=== PATIENT | male | born 1975 | race Caucasian/White ===

== ENCOUNTER 2019-02-24 07:48 | Emergency (ER) | payer OTHER ==
[~2019-02-24] VITALS: Ht 177.8 cm; Wt 97.9 kg
[2019-02-24] MEDS ORDERED: b/p med (07:55)
[2019-02-24] MEDS ORDERED: cholesterol med (07:55)
[2019-02-24] MEDS ORDERED: [UNRECOGNIZED DRUG - REMARK] (08:03)
--- NOTE | 2019-02-24 08:46 | REP ---
Right thumb four views : There is no fracture or dislocation. Mineralization and joint spaces are normal. There are no calcifications or foreign bodies. Impression: Negative right thumb . Electronically Signed by Mane Rosales MD 02/24/2019 08:37 A
[2019-02-24] MEDS ORDERED: ACETAMINOPHEN 325 MG TAB PO ONE (09:00)
[2019-02-24] MEDS ORDERED: ADACEL/BOOSTRIX VACCINE (DIPHTH/PERTUSS/ACELL/TETANUS)0.5ML SYR (90715) IM ONE (09:00)
[2019-02-24] MEDS ORDERED: LIDOCAINE 1% MDV 20ML VIAL SC ONE (09:00)
[2019-02-24] MEDS ORDERED: DERMABOND TOPICAL SKIN ADHESIVE TOP ONE (09:00)
[2019-02-24 09:55] VITALS: BP 115/73
== END 2019-02-24 09:54 | disposition home or self-care (01) ==
LOC: M ED 07:48
DX: S61.011A Laceration without foreign body of right thumb without damage to nail, initial encounter (principal); W22.8XXA Striking against or struck by other objects, initial encounter; Y92.59 Other trade areas as the place of occurrence of the external cause; Y93.89 Activity, other specified; F17.210 Nicotine dependence, cigarettes, uncomplicated

== ENCOUNTER 2019-03-23 16:16 | Emergency (ER) | payer OTHER ==
[~2019-03-23] VITALS: Ht 175.3 cm; Wt 100.2 kg
[~2019-03-23 16:16] MED LIST: [UNRECOGNIZED DRUG - REMARK]; b/p med; cholesterol med
[2019-03-23 16:17] VITALS: BP 129/87
[2019-03-23] MEDS ORDERED: IBUP-1022 PO (17:44)
--- NOTE | 2019-03-23 19:56 | REP ---
Right foot series: Four views. History: Pain. Findings: Four views right foot demonstrate that the patient is status post prior bunionectomy. There are two metallic pins in the proximal first metatarsal. There is mild Achilles calcaneal spurring. There are two accessory ossicles adjacent to the medial malleolus. No fracture or other acute bony abnormality is seen. Impression: Status post bunion repair first metatarsal. Accessory ossicles at the medial malleolus. Tiny heel spur. No acute bony abnormality. Electronically Signed by Pola Mcmillan MD 03/23/2019 07:47 P
== END 2019-03-23 18:07 | disposition home or self-care (01) ==
LOC: M ED 16:16
DX: S96.911A Strain of unspecified muscle and tendon at ankle and foot level, right foot, initial encounter (principal); X50.0XXA Overexertion from strenuous movement or load, initial encounter; Y92.9 Unspecified place or not applicable; G47.30 Sleep apnea, unspecified; I10 Essential (primary) hypertension; E78.00 Pure hypercholesterolemia, unspecified; F17.200 Nicotine dependence, unspecified, uncomplicated; Z79.899 Other long term (current) drug therapy; M77.31 Calcaneal spur, right foot

== ENCOUNTER 2019-10-13 09:16 | Emergency (ER) | payer OTHER ==
[~2019-10-13] VITALS: Ht 177.8 cm; Wt 104.2 kg
[~2019-10-13 09:16] MED LIST changes: +IBUP-1022 PO
[2019-10-13] MEDS ORDERED: ACETAMINOPHEN 500 MG TAB PO ONE (10:00)
[2019-10-13] MEDS ORDERED: KETOROLAC 60 MG/2 ML VIAL IM ONE (10:00)
[2019-10-13] MEDS ORDERED: ROBA750T4 PO (10:38)
[2019-10-13] MEDS ORDERED: LIDO1PAD TOP (10:38)
[2019-10-13 10:47] VITALS: BP 132/82
--- NOTE | 2019-10-13 11:25 | REP ---
LUMBOSACRAL SPINE, FIVE VIEWS: Five views of the lumbosacral spine performed. No compression fracture or malalignment is seen. There is normal lumbar lordosis. There is mild spurring at L3 and L4. There is mild disc space narrowing and subchondral sclerosis at L5-S1 with sclerosis and spurring at the posterior facet joints at that level as well. The posterior elements are intact. There is mild sclerosis at the sacroiliac joints. IMPRESSION: Mild degenerative changes. No fracture or dislocation. Electronically Signed by Mane Terrazas MD 10/13/2019 12:18 P
== END 2019-10-13 10:48 | disposition home or self-care (01) ==
LOC: M ED 09:16
DX: M54.5 Low back pain (principal); M50.30 Other cervical disc degeneration, unspecified cervical region; F17.218 Nicotine dependence, cigarettes, with other nicotine-induced disorders
CPT/HCPCS: 72110; 81001; 96372; 99283; J1885

== ENCOUNTER → 2020-02-10 | Outpatient (CLI) | payer OTHER ==
[~2020-02-10] MED LIST changes: +ATOR1TAB21 PO; +HYDR12.55 PO; +LIDO1PAD TOP; +LISI-538 PO; +ROBA750T4 PO
[2020-02-10 15:01] LABS: COLLAGEN EPINEPHRINE 210 SECONDS (74-162)
[2020-02-10 15:24] LABS: COLLAGEN ADP 100 SECONDS (56-103)
== END ==
LOC: M LAB 14:11
PROVIDERS: ATTEND Physical Medicine & Rehabilitation
DX: M50.320 Other cervical disc degeneration, mid-cervical region, unspecified level (principal)

== ENCOUNTER 2020-02-16 12:13 | Emergency (ER) | payer OTHER ==
[~2020-02-16] VITALS: Ht 175.3 cm; Wt 107.2 kg
[~2020-02-16 12:13] MED LIST changes: -ATOR1TAB21 PO; -HYDR12.55 PO; -LISI-538 PO
[2020-02-16] MEDS ORDERED: HYDR12.55 PO (12:31)
[2020-02-16] MEDS ORDERED: LISI-538 PO (12:31)
[2020-02-16] MEDS ORDERED: ATOR1TAB21 PO (12:31)
[2020-02-16] MEDS ORDERED: NS 1,000 ML IV SCH (12:41)
[2020-02-16] MEDS ORDERED: METOCLOPRAMIDE INJ 10MG/2ML VIAL (J2765 PER 1) IV ONE (12:45)
--- NOTE | 2020-02-16 12:59 | REPVR ---
PROCEDURE INFORMATION: Exam: CT Head Without Contrast Exam date and time: 02/16/2020 12:46 PM Age: 44 years old Clinical indication: Visual disturbance; Additional info: Gait unsteady, blurred vision, trouble concentrating TECHNIQUE: Imaging protocol: Computed tomography of the head without contrast. Radiation optimization: All CT scans at this facility use at least one of these dose optimization techniques: automated exposure control; mA and/or kV adjustment per patient size (includes targeted exams where dose is matched to clinical indication); or iterative reconstruction. COMPARISON: No relevant prior studies available. FINDINGS: Brain: Normal. No hemorrhage. Unremarkable white matter. No mass effect. Ventricles: No ventriculomegaly. Bones/joints: Unremarkable. No acute fracture. Paranasal sinuses: Visualized sinuses are unremarkable. No fluid levels. Mastoid air cells: Visualized mastoid air cells are well aerated. Soft tissues: Unremarkable. IMPRESSION: No acute intracranial abnormality. Electronically signed by: Christen Bermeo On 02/16/2020 12:58:48 PM
[2020-02-16 13:33] LABS: BASO # 0.1 10^3/uL (0.0-0.2); BASO % 0.9 % (0.0-1.0); EOS # 0.2 10^3/uL (0.0-0.5); EOS % 1.8 % (0.0-3.0); HEMATOCRIT 44.4 % (42.0-52.0); HEMOGLOBIN 15.9 g/dl (13.5-17.5); LYMPH # 2.5 10^3/uL (1.5-5.0); LYMPH % 24.9 % (24.0-44.0); MEAN CORPUSCULAR HEMOGLOBIN 32.6 pg (27.0-33.0); MEAN CORPUSCULAR HGB CONC 35.8 g/dl (32.0-36.5); MONO # 0.6 10^3/uL (0.0-0.8); MONO % 6.4 % (0.0-5.0); NEUTROPHILS # 6.6 10^3/uL (1.5-8.5); PLATELET COUNT, AUTOMATED 283 10^3/uL (150-450); RED BLOOD COUNT 4.88 10^6/uL (4.30-6.10); WHITE BLOOD COUNT 10.1 10^3/uL (4.0-10.0)
[2020-02-16 14:09] LABS: ACETAMINOPHEN LEVEL < 2.0 UG/ML (10.0-30.0); ALBUMIN 3.9 GM/DL (3.2-5.2); ALT/SGPT 87 U/L (12-78); BILIRUBIN,DIRECT 0.2 MG/DL (0.0-0.2); BILIRUBIN,TOTAL 0.7 MG/DL (0.2-1.0); BLOOD UREA NITROGEN 14 MG/DL (7-18); CALCIUM LEVEL 9.1 MG/DL (8.5-10.1); CARBON DIOXIDE LEVEL 30 MEQ/L (21-32); CHLORIDE LEVEL 103 MEQ/L (98-107); CK-MB VALUE MASS 1.1 NG/ML (<3.6); CPK CREATINE PHOSPHOKINASE 78 U/L (39-308); CREATININE FOR GFR 1.01 MG/DL (0.70-1.30); ETHYL ALCOHOL (ETHANOL) < 0.003 % (0.000-0.010); GLOMERULAR FILTRATION RATE > 60.0 (>60); GLUCOSE, FASTING 78 MG/DL (70-100); MB/CK RELATIVE INDEX 1.41 (< OR =4); SODIUM LEVEL 139 MEQ/L (136-145); THYROID STIMULATING HORMONE 0.257 uIU/ML (0.358-3.740); TOTAL PROTEIN 6.9 GM/DL (6.4-8.2); TROPONIN I < 0.02 NG/ML (< 0.10)
[2020-02-16 14:37] VITALS: BP 119/60
[2020-02-16 16:05] LABS: AMPHETAMINES LEVEL URINE NEGATIVE (NEGATIVE); BARBITURATES URINE NEGATIVE (NEGATIVE); BENZODIAZEPINES URINE NEGATIVE (NEGATIVE); CANNABINOIDS URINE NEGATIVE (NEGATIVE); COCAINE METABOLITE URINE NEGATIVE (NEGATIVE); METHADONE URINE NEGATIVE (NEGATIVE); OPIATES URINE NEGATIVE (NEGATIVE); PHENCYCLIDINE URINE NEGATIVE (NEGATIVE)
--- NOTE | 2020-02-20 09:49 | ECGEPIP ---
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
== END 2020-02-16 15:23 | disposition home or self-care (01) ==
LOC: M ED 12:13
DX: H53.9 Unspecified visual disturbance (principal); R47.9 Unspecified speech disturbances; I10 Essential (primary) hypertension; F17.200 Nicotine dependence, unspecified, uncomplicated; Z79.899 Other long term (current) drug therapy
CPT/HCPCS: 70450; 80048; 80076; 80307; 82550; 82553; 83605; 84443; 84484; 85025; 93005; 93041; 94760; 96361; 96374; 99284; G0480; J2765

== ENCOUNTER → 2020-03-12 | Outpatient (CLI) | payer OTHER ==
[~2020-03-12] MED LIST changes: +ATOR1TAB21 PO; +HYDR12.55 PO; +LISI-538 PO
[2020-03-12 11:46] LABS: PLATELET COUNT, AUTOMATED 338 10^3/uL (150-450)
[2020-03-12 11:57] LABS: INR 0.93; PROTHROMBIN TIME 12.6 SECONDS (12.5-14.3)
[2020-03-12 11:58] LABS: PARTIAL THROMBOPLASTIN TIME 27.4 SECONDS (24.2-38.5)
[2020-03-12 12:33] LABS: COLLAGEN EPINEPHRINE 124 SECONDS (74-162)
== END ==
LOC: M LAB 11:15
PROVIDERS: ATTEND Physical Medicine & Rehabilitation
DX: Z01.812 Encounter for preprocedural laboratory examination (principal)

== ENCOUNTER → 2020-04-20 | Outpatient (CLI) | payer OTHER ==
[~2020-04-20] MED LIST changes: +ISOVUE-370 76% 100ML VIAL As Ordered ONE
--- NOTE | 2020-04-20 09:32 | REPVR ---
PROCEDURE INFORMATION: Exam: CT Angiography Head With Contrast Exam date and time: 04/20/2020 8:37 AM Age: 44 years old Clinical indication: Pain; Headache; Additional info: Dizziness, visual changes, lightheadness, diff w/ gait TECHNIQUE: Imaging protocol: Computed tomography angiography of the head with intravenous contrast. 3D rendering (Not supervised by radiologist): MIP and/or 3D reconstructed images were created and reviewed. COMPARISON: No relevant prior studies available. FINDINGS: ANTERIOR CIRCULATION: Right internal carotid artery: Unremarkable. Intracranial segment is patent with no significant stenosis. No aneurysm. Right middle cerebral artery: Unremarkable. No occlusion or significant stenosis. No aneurysm. Right anterior cerebral artery: Unremarkable. No occlusion or significant stenosis. No aneurysm. Left internal carotid artery: Unremarkable. Intracranial segment is patent with no significant stenosis. No aneurysm. Left middle cerebral artery: Unremarkable. No occlusion or significant stenosis. No aneurysm. Left anterior cerebral artery: Unremarkable. No occlusion or significant stenosis. No aneurysm. POSTERIOR CIRCULATION: Right vertebral artery: Unremarkable. No occlusion or significant stenosis. No aneurysm. Left vertebral artery: Unremarkable. No occlusion or significant stenosis. No aneurysm. Basilar artery: Small due to origins of both posterior cerebral arteries. Right posterior cerebral artery: There is a origin of the right posterior cerebral artery. Left posterior cerebral artery: There is a origin of the left posterior cerebral artery. Brain: No definite mass, mass effect, or midline shift. Cerebral ventricles: Normal. No ventriculomegaly. Bones/joints: Unremarkable. No acute fracture. Soft tissues: Unremarkable. IMPRESSION: No large vessel stenosis or occlusion. PROCEDURE INFORMATION: Exam: CT Angiography Neck With Contrast Exam date and time: 04/20/2020 8:37 AM Age: 44 years old Clinical indication: Pain; Headache; Additional info: Dizziness, visual changes, lightheadness, diff w/ gait TECHNIQUE: Imaging protocol: Computed tomography angiography of the neck with intravenous contrast. 3D rendering (Not supervised by radiologist): MIP and/or 3D reconstructed images were created by the technologist. Radiation optimization: All CT scans at this facility use at least one of these dose optimization techniques: automated exposure control; mA and/or kV adjustment per patient size (includes targeted exams where dose is matched to clinical indication); or iterative reconstruction. Contrast material: ISO 370; Contrast volume: 100 ml; Contrast route: INTRAVENOUS (IV); COMPARISON: No relevant prior studies available. FINDINGS: Right common carotid artery: No stenosis. No dissection or occlusion. Right internal carotid artery: No stenosis of the extracranial segment. No dissection or occlusion. Right external carotid artery: No occlusion or stenosis of the origin. Right vertebral artery: No stenosis. No dissection or occlusion. Left common carotid artery: No stenosis. No dissection or occlusion. Left internal carotid artery: No stenosis of the extracranial segment. No dissection or occlusion. Left external carotid artery: No occlusion or stenosis of the origin. Left vertebral artery: No stenosis. No dissection or occlusion. Bones/joints: No acute fracture. Soft tissues: Normal. No significant soft tissue swelling. There is a 1.1 cm spiculated nodule in the left lung apex. A malignancy cannot be excluded based on this exam. There are multiple enlarged mediastinal lymph nodes. IMPRESSION: No stenosis or occlusion. There is a 1.1 cm spiculated nodule in the left lung apex. A malignancy cannot be excluded based on this exam. Follow-up chest CT scan is recommended. There are multiple enlarged mediastinal lymph nodes. REFERENCES: NASCET CRITERIA. The degree of internal carotid artery stenosis is based on NASCET criteria. Normal is no stenosis. Mild is less than 50% stenosis. Moderate is 50-69% stenosis. Severe is 70% to 99% stenosis. Total occlusion is no detectable patent lumen. Electronically signed by: Xu Ortega On 04/20/2020 09:33:00 AM
--- NOTE | 2020-04-20 09:33 | REPVR ---
PROCEDURE INFORMATION: Exam: CT Angiography Head With Contrast Exam date and time: 04/20/2020 8:37 AM Age: 44 years old Clinical indication: Pain; Headache; Additional info: Dizziness, visual changes, lightheadness, diff w/ gait TECHNIQUE: Imaging protocol: Computed tomography angiography of the head with intravenous contrast. 3D rendering (Not supervised by radiologist): MIP and/or 3D reconstructed images were created by the technologist. Radiation optimization: All CT scans at this facility use at least one of these dose optimization techniques: automated exposure control; mA and/or kV adjustment per patient size (includes targeted exams where dose is matched to clinical indication); or iterative reconstruction. Contrast material: ISO 370; Contrast volume: 100 ml; Contrast route: INTRAVENOUS (IV); COMPARISON: CT Head without contrast 02/16/2020 12:41 PM FINDINGS: ANTERIOR CIRCULATION: Right internal carotid artery: Unremarkable. Intracranial segment is patent with no significant stenosis. No aneurysm. Right middle cerebral artery: Unremarkable. No occlusion or significant stenosis. No aneurysm. Right anterior cerebral artery: Unremarkable. No occlusion or significant stenosis. No aneurysm. Left internal carotid artery: Unremarkable. Intracranial segment is patent with no significant stenosis. No aneurysm. Left middle cerebral artery: Unremarkable. No occlusion or significant stenosis. No aneurysm. Left anterior cerebral artery: Unremarkable. No occlusion or significant stenosis. No aneurysm. POSTERIOR CIRCULATION: Right vertebral artery: Unremarkable. No occlusion or significant stenosis. No aneurysm. Left vertebral artery: Unremarkable. No occlusion or significant stenosis. No aneurysm. Basilar artery: Small due to origins of both posterior cerebral arteries. Right posterior cerebral artery: There is a origin of the right posterior cerebral artery. Left posterior cerebral artery: There is a origin of the left posterior cerebral artery. Brain: No definite mass, mass effect, or midline shift. Cerebral ventricles: Normal. No ventriculomegaly. Bones/joints: Unremarkable. No acute fracture. Soft tissues: Unremarkable. IMPRESSION: No large vessel stenosis or occlusion. Electronically signed by: Xu Ortega On 04/20/2020 09:33:25 AM
== END ==
LOC: M RAD 07:33
PROVIDERS: ATTEND Emergency Medicine
DX: H53.9 Unspecified visual disturbance (principal); R26.81 Unsteadiness on feet; R42 Dizziness and giddiness

== ENCOUNTER → 2020-06-22 | Outpatient (CLI) | payer OTHER ==
[~2020-06-22] MED LIST changes: -ISOVUE-370 76% 100ML VIAL As Ordered ONE; -LISI-538 PO; +LISI20TA33 PO
--- NOTE | 2020-06-22 18:59 | REP ---
INDICATION: DIAGNOSING SOLITARY PULMONARY NODULE. COMPARISON: Comparison CT study of the chest 08 June 2020.. TECHNIQUE: Fifty-five minutes following the intravenous injection of a 8.05 mCi dose of F-18 FDG, three-dimensional PET scintigraphy is acquired from the skull base to the proximal thighs. Triplanar noncontrast CT scanning is acquired through the same anatomic range for attenuation correction, and image registration with scan parameters optimized to minimize radiation exposure to the patient. PET scintigraphy and CT datasets were fused and displayed on a workstation with multiplanar and projection display capability. FINDINGS: Head and neck soft tissues are unremarkable. The somewhat spiculated 1 cm nodule seen in the left lung apex shows discernible FDG accumulation. Maximum standard uptake value is 2.51. This is considered minimally hypermetabolic. No other abnormal hypermetabolic uptake is seen within the lung parenchyma. However, there is hypermetabolic adenopathy in the mediastinum. A 1 cm lymph node in the right pretracheal region shows visible uptake, 2.28. The left AP window region lymph node seen on recent CT shows hypermetabolic uptake with maximum standard uptake value 8.98. There is subcarinal adenopathy with a tara focus here showing. Maximum standard uptake value 9.24. No other abnormal hypermetabolic tara uptake is seen. In the abdomen and pelvis, normal distribution of FDG is seen. No abnormal adrenal uptake is seen. No abnormal uptake is noted in the abdomen or pelvis. IMPRESSION: There is a small 1 cm spiculated nodule in the left lung apex which is marginally hypermetabolic. There is hypermetabolic mediastinal lymphadenopathy however. Bronchogenic malignancy with metastatic adenopathy must be suspected. Granulomatous disease may be a possibility as well. <Electronically signed by Sal Mcmillan > 06/22/20 [id number]
== END ==
LOC: M PLARAD 14:27
PROVIDERS: ATTEND Emergency Medicine
DX: R91.1 Solitary pulmonary nodule (principal)

== ENCOUNTER → 2020-07-15 | Outpatient (CLI) | payer OTHER ==
[2020-07-15 12:06] LABS: BASO # 0.1 10^3/uL (0.0-0.2); EOS # 0.2 10^3/uL (0.0-0.5); EOS % 2.3 % (0.0-3.0); HEMATOCRIT 49.8 % (42.0-52.0); LYMPH # 2.6 10^3/uL (1.5-5.0); LYMPH % 29.5 % (24.0-44.0); MEAN CORPUSCULAR HEMOGLOBIN 30.5 pg (27.0-33.0); MEAN CORPUSCULAR HGB CONC 34.1 g/dl (32.0-36.5); MEAN CORPUSCULAR VOLUME 89.2 fl (80.0-96.0); MONO # 0.7 10^3/uL (0.0-0.8); MONO % 8.2 % (0.0-5.0); NEUTROPHILS % 58.4 % (36.0-66.0); PLATELET COUNT, AUTOMATED 350 10^3/uL (150-450); RED BLOOD COUNT 5.58 10^6/uL (4.30-6.10); WHITE BLOOD COUNT 8.6 10^3/uL (4.0-10.0)
[2020-07-15 12:16] LABS: INR 0.88; PROTHROMBIN TIME 12.1 SECONDS (12.5-14.3)
[2020-07-15 12:17] LABS: PARTIAL THROMBOPLASTIN TIME 29.3 SECONDS (24.2-38.5)
[2020-07-15 12:33] LABS: ALT/SGPT 57 U/L (12-78); BILIRUBIN,TOTAL 0.8 MG/DL (0.2-1.0); BLOOD UREA NITROGEN 15 MG/DL (7-18); CALCIUM LEVEL 9.4 MG/DL (8.5-10.1); CARBON DIOXIDE LEVEL 30 MEQ/L (21-32); CHLORIDE LEVEL 102 MEQ/L (98-107); CREATININE FOR GFR 0.99 MG/DL (0.70-1.30); GLOMERULAR FILTRATION RATE > 60.0 (>60); GLUCOSE, FASTING 78 MG/DL (70-100); POTASSIUM SERUM 4.8 MEQ/L (3.5-5.1); SODIUM LEVEL 138 MEQ/L (136-145); TOTAL PROTEIN 7.5 GM/DL (6.4-8.2)
== END ==
LOC: M LAB 11:14
PROVIDERS: ATTEND Internal Medicine Pulmonary Disease
DX: R91.8 Other nonspecific abnormal finding of lung field (principal)

== ENCOUNTER → 2020-07-16 | Outpatient (CLI) | payer OTHER ==
[~2020-07-16] MED LIST changes: +PROHANCE 279.3MG/ML 15ML VIAL As Ordered ONE; +PROHANCE 279.3MG/ML 5ML VIAL As Ordered ONE
--- NOTE | 2020-07-16 14:43 | REPVR ---
PROCEDURE INFORMATION: Exam: MR Head Without and With Contrast Exam date and time: 07/16/2020 2:11 PM Age: 44 years old Clinical indication: Altered mental status/memory loss; Confusion or disorientation; Additional info: Cognitive changes TECHNIQUE: Imaging protocol: MR of the head without and with intravenous contrast. Contrast material: PROHANCE; Contrast volume: 17 ml; Contrast route: INTRAVENOUS (IV); COMPARISON: CT Head without contrast 02/16/2020 12:41 PM FINDINGS: Brain: No acute infarct identified on the diffusion-weighted imaging. No evidence of brain parenchymal edema or intracranial mass effect. No significant white matter disease; essentially symmetric slight increased signal intensity in the occipital periventricular white matter of doubtful clinical relevance. No enhancing brain pathology. Cerebral ventricles: No ventriculomegaly. Bones/joints: Unremarkable. Paranasal sinuses: Normal as visualized. No acute sinusitis. Mastoid air cells: Normal as visualized. No mastoid effusion. Orbital cavity: Unremarkable. Soft tissues: Unremarkable. IMPRESSION: No acute intracranial abnormality. Electronically signed by: Alba Aguero On 07/16/2020 14:43:43 PM
== END ==
LOC: M RAD 12:55
PROVIDERS: ATTEND Emergency Medicine
DX: R91.8 Other nonspecific abnormal finding of lung field (principal); R41.89 Other symptoms and signs involving cognitive functions and awareness

== ENCOUNTER → 2020-07-22 | Outpatient (CLI) | payer OTHER ==
[~2020-07-22] MED LIST changes: +LIDO1PAD TD; +LOSA50TA88 PO; -PROHANCE 279.3MG/ML 15ML VIAL As Ordered ONE; -PROHANCE 279.3MG/ML 5ML VIAL As Ordered ONE; +PROZ20CA11 PO
--- NOTE | 2020-07-23 06:26 | REP ---
INDICATION: OTHER NONSPECIFIC ABNORMAL FINDING OF LUNG FIELD COMPARISON: 06/08/2020, 10/22/2018 TECHNIQUE: Axial noncontrast images from the thoracic inlet to the upper abdomen with coronal and sagittal reformations. This CT examination was performed using the following dose reduction techniques: Automated exposure control, adjustment of mA and/or kv according to the patient's size, and use of iterative reconstruction technique. FINDINGS: Part solid nodular density in the left apex, and basilar left upper lobe/lingula are unchanged compared to 06/08/2020 and relatively new as compared to 10/22/2018. No new nodules or mass lesions are appreciated. No consolidation, effusion, or pneumothorax. Tracheobronchial tree is patent. Few mildly prominent but stable lymph nodes are again identified in the prevascular space measuring approximately 11 mm in short axis diameter and 16 mm in the subcarinal space. Tracheobronchial tree is patent. Musculoskeletal structures are intact and without acute osseous abnormality. Limited upper abdomen demonstrates normal bilateral adrenal glands. IMPRESSION: Part solid nodular densities in the left apex and lingula/basilar left upper lobe stable compared to 06/08/2020. No new lesions are appreciated. <Electronically signed by Zuhair Delcid > 07/23/20 [id number]
== END ==
LOC: M RAD 17:19
PROVIDERS: ATTEND Internal Medicine Pulmonary Disease
DX: R91.8 Other nonspecific abnormal finding of lung field (principal)

== ENCOUNTER → 2020-07-23 | Outpatient (CLI) | payer OTHER | LOC: M LABSMTC 13:13 | PROVIDERS: ATTEND Anesthesiology | DX: Z01.812 Encounter for preprocedural laboratory examination (principal); Z20.822 Contact with and (suspected) exposure to COVID-19 ==

== ENCOUNTER 2020-07-28 06:10 | Day surgery (SDC) | payer OTHER ==
[~2020-07-28] VITALS: Ht 175.3 cm; Wt 107.0 kg
[~2020-07-28 06:10] MED LIST changes: +ALBUTEROL SULFATE 2.5 MG/0.5 ML INH NEB SOLN INH ONE; +LIDOCAINE 1% MDV 20ML VIAL SQ PRN; +LIDOCAINE 4% INJ 5ML AMP INH ONE; +LR 1,000 ML IV ONE
--- OUTSIDE RECORDS SUMMARY | 2020-07-28 06:14 | CCD | Continuity of Care Document ---
Author Author Des FRENCH M.D. Organization Unknown Address [address] [facility] [address] [place] [address] Phone [phone] Care Team Providers Care Clinical Research Tech Name Role Phone Shubham Parnell AUTM [phone] Marcial Grimaldo D.O. Unavailable Problems Description No Information Available Social History Type Date Description Comments Sex Unknown Tobacco Use Reviewed: 07/15/20 Patient is a current smoker, smokes every day 1 ppd Smoking Status Reviewed: 07/15/20 Patient is a current smoker, smokes every day 1 ppd Allergies, Adverse Reactions, Alerts Description No Known Drug Allergies Medications Active Medications SIG Qnty Indications Ordering Provide r Date Atorvastatin Calcium 40mg Tablets 1 tab by mouth every day Unknown Hydrochlorothiazide 12.5mg Capsule s 1 tab by mouth every day Unknown Losartan Potassium 50mg Tablets 1 tab by mouth every day Unknown CPAP Device 18cm Unknown Immunizations CPT Code Status Date Vaccine Lot # [id number] Given 07/01/2020 Afluria, Quadrivalent, 0.5ml , [facility]# 87272-840-54 Vital Signs Date Vital Result Comment 07/15/2020 9:15am BP Systolic 132 mmHg BP Diastolic 76 mmHg Heart Rate 95 /min O2 % BldC Oximetry 98 % Body Temperature 96.6 F Height 69 inches 5'9" Weight 230.00 lb BMI (Body Mass Index) 34.0 kg/m2 [place] Body Weight 160 lb Weight 104.328 kg BSA (Body Surface Area) 2.19 m2 Results Test Acquired Date Facility Test Result H/L Range Note FVL/[place] 07/15/2020 [facility] SEE IMAGE FVC-Pred 5.06 L FVC-Pre 4.77 L FVC-%Pred-Pre 94 L FVC-LLN 4.15 L Fev1-Pred 4.01 L Fev1-Pre 3.86 L Fev1-%Pred-Pre 96 L Fev1-LLN 3.24 L Fev6-Pred 4.92 L Fev6-Pre 4.77 L Fev6-%Pred-Pre 96 L Fev6-LLN 4.04 L Rzc5lte-Rwql 79 % Mfb8ude-Ivk 81 % Pds2cyc-%Pred-Pre 102 % Ayi9kvx-VFV 69 % Aqf2min-Ejnn 97 % Xfg3eun-Fzj 100 % Onr0ibr-%Pred-Pre 102 % FEFMax-Pred 9.87 L/E/sec FEFMax-Pre 9.13 L/E/sec FEFMax-%Pred-Pre 92 L/E/sec FEFMax-LLN 7.61 L/E/sec Bzd7510-Kinf 3.73 L/E/sec Cmx7681-Djg 3.82 L/E/sec Gzn5500-%Pred-Pre 102 L/E/sec Ihq1691-AOY 2.17 L/E/sec ExpTime-Pre 6.08 sec Edq4bwj2-Hsaq 81 % Xrd2pre6-Uhc 81 % Bvu3fsy4-%Pred-Pre 99 % Yml6dgn1-IRE 72 % Procedures Description No Information Available Medical Devices Description No Information Available Encounters Type Date Location Provider Dx Diagnosis Office Visit 07/15/2020 9:30a [facility] Mari iNcholas M.D. F17.218 Nicotine dependence, cigaret bernadine, w oth disorders R91.8 Other nonspecific abnormal f inding of lung field R59.0 Localized enlarged lymph nod es Assessments Date Code Description Provider 07/15/2020 F17.218 Nicotine dependence, cigarettes, with other nicotine-induced disorders Mari French M.D. 07/15/2020 R91.8 Other nonspecific abnormal findi ng of lung field Mari French M.D. 07/15/2020 R59.0 Localized enlarged lymph nodes Mari Nicholas M.D. Plan of Treatment 07/15/2020 - Mari French M.D.* F17.218 Nicotine dependence, cigarettes, with other nicotine-induced disorders * R91.8 Other nonspecific abnormal finding of lung field * R59.0 Localized enlarged lymph nodes * * Follow up:* Follow up in office after procedure. Functional Status Description No Information Available Mental Status Description No Information Available Referrals Refer to Reason for Referral Status Appt Date Brad Fernández M.D. [id number] CONSULT DX NODULE Created [facility] [address] [place] [id number] [phone] Brad Fernández M.D. [id number] F/U DX NODULE Created [facility] [address] [place], [place] [address] [phone]
--- OUTSIDE RECORDS SUMMARY | 2020-07-28 06:14 | CCD ---
Author Author [facility] Organization [facility] Address Unknown Phone Unavailable Care Team Providers Care Auditing Specialist Name Role Phone Mari Lincoln MD Unavailable Unavailable Mari Lincoln MD Unavailable Unavailable Mari Lincoln MD Unavailable Unavailable Mari Lincoln MD Unavailable Unavailable Mari Lincoln MD Unavailable Unavailable Mari Lincoln MD Unavailable Unavailable Mari Lincoln MD Unavailable Unavailable Mari Lincoln MD Unavailable Unavailable Mari Lincoln MD Unavailable Unavailable Mari Lincoln MD Unavailable Unavailable Mari Lincoln MD Unavailable Unavailable Mari Lincoln MD Unavailable Unavailable Mari Lincoln MD Unavailable Unavailable Mari Lincoln MD Unavailable Unavailable Mari Lincoln MD Unavailable Unavailable Mari Lincoln MD Unavailable Unavailable Mari Lincoln MD Unavailable Unavailable Mari Lincoln MD Unavailable Unavailable Mari Lincoln MD Unavailable Unavailable Mari Lincoln MD Unavailable Unavailable Mari Lincoln MD Unavailable Unavailable Mari Lincoln MD Unavailable Unavailable Mari Lincoln MD Unavailable Unavailable Mari Lincoln MD Unavailable Unavailable Mari Lincoln MD Unavailable Unavailable Mari Lincoln MD Unavailable Unavailable CamarilloUziel Unavailable Unavailable Camarillo, Uziel Unavailable Unavailable Camarillo, Uziel Unavailable Unavailable Camarillo, Uziel Unavailable Unavailable Camarillo, Uziel Unavailable Unavailable Camarillo, Uziel Unavailable Unavailable Camarillo, Uziel Unavailable Unavailable Camarillo, Uziel Unavailable Unavailable Camarillo, Uziel Unavailable Unavailable Camarillo, Uziel Unavailable Unavailable Camarillo, Uziel Unavailable Unavailable [place]arillo, Uziel Unavailable Unavailable [place]ar[place], Uziel Unavailable Unavailable [place]ar[place], Uziel Unavailable Unavailable [place]ar[place], Uziel Unavailable Unavailable [place], Uziel Unavailable Unavailable [place], Uziel Unavailable Unavailable [place]ar[place], Uziel Unavailable Unavailable [place], Uziel Unavailable Unavailable Camarillo, Uziel Unavailable Unavailable Camarillo, Uziel Unavailable Unavailable [place], Uziel Unavailable Unavailable [place], Uziel Unavailable Unavailable [place]arillo, Uziel Unavailable Unavailable Camarillo, Uziel Unavailable Unavailable [place]arillo, Uziel Unavailable Unavailable [place], Uziel Unavailable Unavailable [place], Uziel Unavailable Unavailable [place]ar[place], Uziel Unavailable Unavailable Camarillo, Uziel Unavailable Unavailable [place]ar[place], Uziel Unavailable Unavailable [place], Uziel Unavailable Unavailable [place]ar[place], Uziel Unavailable Unavailable [place], Uziel Unavailable Unavailable [place]arillo, Uziel Unavailable Unavailable [place]ar[place], Uziel Unavailable Unavailable [place], Uziel Unavailable Unavailable [place], Uziel Unavailable Unavailable [place], Uziel Unavailable Unavailable [place]ar[place], Uziel Unavailable Unavailable [place]ar[place], Uziel Unavailable Unavailable [place], Uziel Unavailable Unavailable [place]ar[place], Uziel Unavailable Unavailable [place]ar[place], Uziel Unavailable Unavailable Johnson, L Earle CROSS Unavailable Unavailable Johnson, Candelario Og MD Unavailable Unavailable Johnson, Candelario Og MD Unavailable Unavailable Johnson, Candelario Og MD Unavailable Unavailable Johnson, Candelario Og MD Unavailable Unavailable Johnson, Candelario Og MD Unavailable Unavailable Johnson, Candelario Og MD Unavailable Unavailable Johnson, Candelario Og MD Unavailable Unavailable Johnson, Candelario Og MD Unavailable Unavailable Johnson, Candelario Og MD Unavailable Unavailable Johnson, Candelario Og MD Unavailable Unavailable Johnson, Candelario Og MD Unavailable Unavailable Johnson, Candelario Og MD Unavailable Unavailable Johnson, Candelario Og MD Unavailable Unavailable Johnson, Candelario Og MD Unavailable Unavailable Johnson, Candelario Og MD Unavailable Unavailable Johnson, Candelario Og MD Unavailable Unavailable Johnson, Candelario Og MD Unavailable Unavailable Johnson, Candelario Og MD Unavailable Unavailable Johnson, Candelario Og MD Unavailable Unavailable Johnson, Candelario Og MD Unavailable Unavailable Johnson, Candelario Og MD Unavailable Unavailable Johnson, Candelario Og MD Unavailable Unavailable Johnson, Candelario Og MD Unavailable Unavailable Johnson, Candelario Og MD Unavailable Unavailable Johnson, Candelario Og MD Unavailable Unavailable Johnson, Candelario Og MD Unavailable Unavailable Johnson, Candelario Og MD Unavailable Unavailable Johnson, Candelario Og MD Unavailable Unavailable Johnson, Candelario Og MD Unavailable Unavailable Johnson, Candelario Og MD Unavailable Unavailable Johnson, Candelario Og MD Unavailable Unavailable Johnson, Candelario Og MD Unavailable Unavailable Johnson, Candelario Og MD Unavailable Unavailable Johnson, Candelario Og MD Unavailable Unavailable Johnson, Candelario Og MD Unavailable Unavailable Johnson, Candelario Og MD Unavailable Unavailable Johnson, Candelario Og MD Unavailable Unavailable Johnson, Canedlario Og MD Unavailable Unavailable Johnson, Candelario Og MD Unavailable Unavailable Johnson, Candelario Og MD Unavailable Unavailable Johnson, Candelario Og MD Unavailable Unavailable Johnson, Candelario Og MD Unavailable Unavailable Johnson, Candelario Og MD Unavailable Unavailable Jonhson, Candelario Og MD Unavailable Unavailable Johnson, Candelario Og MD Unavailable Unavailable Candelario Johnson MD Unavailable Unavailable Candelario Johnson MD Unavailable Unavailable SEE, M CHARAN PA Unavailable Unavailable SEE, M CHARAN PA Unavailable Unavailable SEE, M CHARAN PA Unavailable Unavailable SEE, M CHARAN PA Unavailable Unavailable SEE, M CHARAN PA Unavailable Unavailable SEE, M CHARAN PA Unavailable Unavailable SEE, M CHARAN PA Unavailable Unavailable SEE, M CHARAN PA Unavailable Unavailable SEE, M CHARAN PA Unavailable Unavailable SEE, M CHARAN PA Unavailable Unavailable SEE, M CHARAN PA Unavailable Unavailable SEE, M CHARAN PA Unavailable Unavailable SEE, M CHARAN PA Unavailable Unavailable SEE, M CHARAN PA Unavailable Unavailable SEE, M CHARAN PA Unavailable Unavailable SEE, M CHARAN PA Unavailable Unavailable SEE, M CHARAN PA Unavailable Unavailable SEE, M CHARAN PA Unavailable Unavailable SEE, M CHARAN PA Unavailable Unavailable SEE, M CHARAN PA Unavailable Unavailable SEE, M CHARAN PA Unavailable Unavailable SEE, M CHARAN PA Unavailable Unavailable SEE, M CHARAN PA Unavailable Unavailable SEE, M CHARAN PA Unavailable Unavailable Re-disclosure Warning The records that you are about to access may contain information from federally-assisted alcohol or drug abuse programs. If such information is present, then the following federally mandated warning applies: This information has been disclosed to you from records protected by federal confidentiality rules (42 CFR part 2). The federal rules prohibit you from making any further disclosure of this information unless further disclosure is expressly permitted by the written consent of the person to whom it pertains or as otherwise permitted by 42 CFR part 2. A general authorization for the release of medical or other information is NOT sufficient for this purpose. The Federal rules restrict any use of the information to criminally investigate or prosecute any alcohol or drug abuse patient.The records that you are about to access may contain highly sensitive health information, the redisclosure of which is protected by Article 27-F of the [place] State Public Health law. If you continue you may have access to information: Regarding HIV / AIDS; Provided by facilities licensed or operated by the [facility] Office of Mental Health; or Provided by the [facility] Office for People With Developmental Disabilities. If such information is present, then the following [facility] mandated warning applies: This information has been disclosed to you from confidential records which are protected by state law. State law prohibits you from making any further disclosure of this information without the specific written consent of the person to whom it pertains, or as otherwise permitted by law. Any unauthorized further disclosure in violation of state law may result in a fine or intermediate sentence or both. A general authorization for the release of medical or other information is NOT sufficient authorization for further disc losure. Encounters Encounter Providers Location Date Indications Data Source(s ) Office Visit Attender: Mari Casillas/Justice/Fernando/Domenic [email or web address] 07/15/2020 08:30:00 AM EST [facility] ([facility], ) Outpatient Attender: CHARAN CERVANTES Physical Therapy 03/05 09:15:00 AM EDT [facility] Outpatient Attender: CHARAN CERVANTES Physical Therapy 02/03 11:00:00 AM EDT [facility] Outpatient Attender: Uziel Camarillo Physical Therapy 01/22/2020 01:00:0 0 PM EDT [facility] ([facility] ) Outpatient Attender: Earle Johnson MD Physical Therapy 01/16/2020 0 9:00:00 AM EDT [facility] ([facility] ) Immunizations Vaccine Date Status Description Data Source(s) New in 2011. IIV4 07/01/2020 08:12:00 AM EST completed [facility] ([facility], ) Medications Medication Brand Name Start Date Product Form Dose Route Admi nistrative Instructions Pharmacy Instructions Status Indications Reaction Description Data Source(s) 8 HR Acetaminophen 650 MG Extended Release Oral Tablet [Tyle nol] Tylenol 8 Hour 10/21/2019 12:00:00 AM EDT active [facility] ([facility], ) Insurance Providers Payer name Policy type / Coverage type Policy ID Covered constitution party ID Covered constitution party's relationship to radford Policy Radford Plan Information [facility] ACTIVE DUTY [id number] SP [id number] [facility] [id number] SP [id number] ACTIVE DUTY [id number] MERGED WITH [facility] O [id number] S [id number] ACTIVE DUTY [id number] SP [id number] Problems, Conditions, and Diagnoses Code Display Name Description Problem Type Effective Dates Data Source(s) 50978282 Carpal tunnel syndrome Carpal tunnel syndrome Problem 10/21/2019 12:00:00 AM EDT [facility] ([facility], ) [id number] Cervical radiculopathy Cervical radiculopathy Problem 10/21/2019 12:00:00 AM EDT [facility] ([facility], ) [id number] Chronic neck pain Chronic neck pain Problem 10/02 12:00:00 AM EDT [facility] ([facility], ) Surgeries/Procedures Procedure Description Date Indications Data Source(s) Injec Anesthetic Agent/Steroid Trans Epidural Cerv/Thor Sing le 03/15/2020 12:00:00 AM EDT [facility] ([facility] ) Epidurography Radiological Supervision & Interpretation 03/15/2020 12:00:00 AM EDT [facility] ([facility] ) Moderate Sedation Services; Same Phys Intl 15 Mins; PT >= 5 Years 03/15/2020 12:00:00 AM EDT [facility] ([facility] ) MRI Upper Extremity Any Joint 02/17/2020 12:00:00 AM E DT [facility] ([facility] ) Needle electromyography, each extremity, with related paraspinal areas, when performed, done with nerve conduction, amplitude and latency/velocity study; complete, five or more muscles studied, innervated by three or more nerves or four or more spinal levels (list separately in addition to the code for primary procedure). 10/21/2019 12:00:00 AM EDT [facility] ([facility], ) Needle electromyography, each extremity, with related paraspinal areas, when performed, done with nerve conduction, amplitude and latency/velocity study; complete, five or more muscles studied, innervated by three or more nerves or four or more spinal levels (list separately in addition to the code for primary procedure). 10/21/2019 12:00:00 AM EDT [facility] ([facility], ) Needle Electromyography Non Extremity Done With Nerve Conduc tion 10/21/2019 12:00:00 AM EDT [facility] ([facility]) [address] Nerve conduction studies 13 or more studies NEW 201210/21/2019 12:00:00 AM EDT [facility]) Results ID Date Data Source [id number] 07/23/2020 01:25:00 PM EST [facility] Name Value Range Interpretation Code Description Data Ashanti rce(s) Supporting Document(s) SARS coronavirus 2 RNA Not Detected [facility] This lab was ordered by [facility] and reported by [facility]. ID Date Data Source [id number] 07/15/2020 09:14:00 AM EST [facility] ([facility], ) Name Value Range Interpretation Code Description Data Ashanti rce(s) Supporting Document(s) PDFReport Laboratory test result [facility] ([facility], ) FVC-%Pred-Pre 94 L [facility] ([facility]) FVC-Pred 5.06 L [facility] ([facility]) FVC-Pre 4.77 L [facility] ([facility]) Fev1-Pred 4.01 L [facility] ([facility]) Fev1-Pre 3.86 L [facility] ([facility]) FVC-LLN 4.15 L [facility] ([facility]) Fev1-LLN 3.24 L [facility] ([facility]) Fev1-%Pred-Pre 96 L [facility] ([facility]) Fev6-Pred 4.92 L [facility] ([facility]) Fev6-LLN 4.04 L [facility] ([facility]) Fev6-%Pred-Pre 96 L [facility] ([facility]) Fev6-Pre 4.77 L [facility] ([facility]) Xpk9udy-Dhvd 79 % [facility] ([facility]) Iof0yjf-Keo 81 % [facility] ([facility]) Krw4gqc-Fxig 97 % [facility] ([facility]) Vvu7jch-FIK 69 % [facility] ([facility]) Wgu1scq-%Pred-Pre 102 % [facility] ([facility]) Civ8lhl-Ivo 100 % [facility] ([facility]) Htf9anl-%Pred-Pre 102 % [facility] ([facility]) FEFMax-Pred 9.87 L/E/sec [facility] ([facility]) FEFMax-Pre 9.13 L/E/sec [facility] ([facility]) FEFMax-LLN 7.61 L/E/sec [facility] ([facility]) FEFMax-%Pred-Pre 92 L/E/sec [facility] ([facility]) Hil8251-Hhvm 3.73 L/E/sec [facility] ([facility]) Mvc1574-%Pred-Pre 102 L/E/sec [facility] ([facility]) Enz2633-Ppk 3.82 L/E/sec [facility] ([facility]) Utz7els8-Qwbd 81 % [facility] ([facility]) ExpTime-Pre 6.08 sec [facility] ([facility]) Hgq5989-PRK 2.17 L/E/sec [facility] ([facility]) Ere9aye9-Ani 81 % [facility] ([facility]) Jxd6daj6-VXX 72 % [facility] ([facility]) Bxh6cbu5-%Pred-Pre 99 % [facility] ([facility]) ID Date Data Source [id number] 06/08/2020 12:00:00 AM EST [facility] HELEN Hernandez Patient Name: BECKA [id number] Natasha Davis Date of : 1975Joes[birth year] [place] [address] Date of Exam: [facility]#: Fax: [phone] EXAM: CT THORAX WITH CONTRASTCLINICAL INFORMATION: Followup lung nodule which by history measured 4 mmin size.The prior examination is in [facility] and no prior images are availablefor comparison.Low dose [address] scanning of the chest was obtained using 3 mmincrements after the administration of intravenous contrast andreconstructed in both coronal and sagittal scan planes. 75 cc of [id number] was administered intravenously.There is a single enlarged mediastinal lymph node at the level of theaortic arch on the left and having a maximal short axis dimension of 1.1cm. Other much smaller lymph nodes are also seen in the mediastinum. Thereis no evidence of hilar adenopathy. There are no pleural or pericardialeffusions. The imaged upper abdomen is within normal limits. The imagedosseous structures are within normal limits.Evaluation of the lung mancera shows a 9 mm sized irregular left apicaldensity. In the superior lingula there is an 8 mm sized irregular nodule.In the inferior lingula there is a 5 mm sized nodule.IMPRESSION:1. There are three left lung nodules as described above. The mostconcerning are the apical asymmetric density which measures 9 mm and theirregular superior lingular nodule which measures 8 mm. Since I have nopriors for comparison, according to the revised Fleischner's SocietyCriteria, CT PET is recommended at this time. The larger of the two nodulesrepresent category 4B lesions possibly category 4X for the largest nodule.2. Mediastinal adenopathy as described above.Accredited by the [employer] in [place].JUANA Grimes/Salbador you for referring BECKA ADHIKARI to our office. Electronically Signed - INDER LANE DO 06/09/20 15:12 Name Value Range Interpretation Code Description Data Ashanti rce(s) Supporting Document(s) ID Date Data Source [id number] 03/12/2020 11:26:00 AM EDT [facility] ([facility] ) Name Value Range Interpretation Code Description Data Ashanti rce(s) Supporting Document(s) Prothrombin time (PT) 27.4 s 24.2-38.5 [facility] ([facility] ) ID Date Data Source [id number] 03/12/2020 11:26:00 AM EDT [facility] ([facility] ) Name Value Range Interpretation Code Description Data Ashanti rce(s) Supporting Document(s) Prothrombin Time 12.6 s 12.5-14.3 [facility] ([facility]) Inr 0.93 [facility] ([facility] ) THERAPUTIC HUMAN INR VALUES INDICATIONS NORMAL RANGES PROPHYLAXIS/TREATMENT OF: VENOUS THROMBOSIS 2.0-3.0 PULMONARY EMBOLISM 2.0-3.0 PREVENTION OF SYSTEMIC EMBOLISM FROM: TISSUE HEART VALVES 2.0-3.0 ACUTE MYOCARDIAL INFARCTION 2.0-3.0 VALVULAR HEART DISEASE 2.0-3.0 ATRIAL FIBRILLATION 2.0-3.0 MECHANICAL VALVES(HIGH RISK) 2.5-3.5 RECURRENT MYOCARDIAL INFARCTION 2.5-3.5 ID Date Data Source [id number] 03/12/2020 11:26:00 AM EDT [facility] ([facility] ) Name Value Range Interpretation Code Description Data Ashanti rce(s) Supporting Document(s) Platelets [#/volume] in Blood by Automated count 338 10 150-450 [facility] ([facility] ) ID Date Data Source [id number] 03/12/2020 11:26:00 AM EDT [facility] ([facility] ) Name Value Range Interpretation Code Description Data Ashanti rce(s) Supporting Document(s) Collagen Epinephrine 124 s 74-162 [facility] ([facility] ) Results may be affected by platelet coun ts less than 150,000/mL or hematocrits less than 35%. If COL/EPI is NORMAL, COL/ADP is not performed. Result Interpretation: COL/EPI COL/ADP NORMAL NORMAL NORMAL ASA ABNORMAL NORMAL vWD ABNORMAL NORMAL GLANZMANN'S ABNORMAL ABNORMAL THROMBASTHENIA POSSIBLE DRUG ABNORMAL ABNORMAL EFFECT ID Date Data Source [id number] 02/10/2020 02:15:00 PM EDT [facility] ([facility] ) Name Value Range Interpretation Code Description Data Ashanti rce(s) Supporting Document(s) Platelet aggregation collagen induced [Presence] in Platelet rich plasma 100 s 56-103 [facility] ([facility]) Results may be affected by platelet coun ts less than 150,000/mL or hematocrits less than 35%. ID Date Data Source [id number] 02/10/2020 02:15:00 PM EDT [facility] ([facility]) Name Value Range Interpretation Code Description Data Ashanti rce(s) Supporting Document(s) Collagen Epinephrine 210 s 74-162 [facility] Results may be affected by platelet coun ts less than 150,000/mL or hematocrits less than 35%. If COL/EPI is NORMAL, COL/ADP is not performed. Result Interpretation: COL/EPI COL/ADP NORMAL NORMAL NORMAL ASA ABNORMAL NORMAL vWD ABNORMAL NORMAL GLANZMANN'S ABNORMAL ABNORMAL THROMBASTHENIA POSSIBLE DRUG ABNORMAL ABNORMAL EFFECT ID Date Data Source [id number] 02/10/2020 02:15:00 PM EDT [facility] ([facility]) Name Value Range Interpretation Code Description Data Ashanti rce(s) Supporting Document(s) Prothrombin time (PT) Laboratory test result [facility] ([facility]) Platelets [#/volume] in Blood by Automated count Laboratory test resu lt [facility] ([facility]) Procedure Social History Code Duration Value Status Description Data Source(s ) 07/15/2020 12:00:00 AM EST Patient is a current smoker, smokes every day completed Patient is a current smoker, smokes every day [facility] ( [facility]) Vital Signs ID Date Data Source UNK Name Value Range Interpretation Code Description Data Source(s) Body surface area Derived from formula 2.19 m2 2.19 m2 [facility] ([facility]) Body weight 104.328 kg 104.328 kg [facility] ([facility]) Bronson body weight 160 [lb_av] 160 [lb_av] [facility] Body mass index (BMI) [Ratio] 34.0 kg/m2 34.0 k g/m2 [facility] ([facility]) Body weight 230.00 [lb_av] 230.00 [lb_av] [facility] Body height 69 [in_i] 69 [in_i] [facility] ([facility]) 5'9" Body temperature 96.6 [degF] 96.6 [degF] [facility] ([facility] ) Oxygen saturation in Arterial blood by Pulse oximetry 98 % 98 % [facility] ([facility], ) Heart rate 95 /min 95 /min [facility] ([facility], ) Diastolic blood pressure 76 mm[Hg] 76 mm[Hg] [facility] ([facility]) Systolic blood pressure 132 mm[Hg] 132 mm[Hg] [facility] Body mass index (BMI) [Ratio] 34.0 kg/m2 34.0 k g/m2 [facility] ([facility] ) Body weight 230.00 [lb_av] 230.00 [lb_av] [facility] ([facility] ) Body height 69 [in_i] 69 [in_i] [facility] ([facility] ) 5'9" Body temperature 97.7 [degF] 97.7 [degF] [facility] ([facility] ) Body mass index (BMI) [Ratio] 33.2 kg/m2 33.2 k g/m2 [facility] ([facility] ) Body weight 225.00 [lb_av] 225.00 [lb_av] [facility] ([facility] ) Body height 69 [in_i] 69 [in_i] [facility] ([facility] ) 5'9" Body temperature 97.6 [degF] 97.6 [degF] [facility] ([facility] ) Body mass index (BMI) [Ratio] 34.0 kg/m2 34.0 k g/m2 [facility] ([facility] ) Body weight 230.00 [lb_av] 230.00 [lb_av] [facility] ([facility], ) Body height 69 [in_i] 69 [in_i] [facility] ([facility], ) 5'9" Heart rate 72 /min 72 /min [facility] ([facility], ) Diastolic blood pressure 80 mm[Hg] 80 mm[Hg] [facility] ([facility] ) Systolic blood pressure 120 mm[Hg] 120 mm[Hg] [facility] ([facility])
[2020-07-28] MEDS ORDERED: THROMBIN SOLN 5,000 UNITS VIAL As Ordered ONE ×2 (07:14→07:20)
[2020-07-28] MEDS ORDERED: CETACAINE SPRAY 5GM As Ordered ONE (07:15)
[2020-07-28] MEDS ORDERED: LIDOCAINE 1% SDV 30ML VIAL As Ordered ONE ×2 (07:15→07:16)
[2020-07-28] MEDS ORDERED: EPINEPHrine 1MG/10ML SYRINGE 1.5IN As Ordered ONE (07:15)
[2020-07-28] MEDS ORDERED: THROMBIN SOLN 20,000 UNITS KIT As Ordered ONE (07:16)
[2020-07-28] MEDS ORDERED: propofoL 200 MG/20 ML VIAL As Ordered ONE ×2 (07:19→08:12)
[2020-07-28] MEDS ORDERED: ROCURONIUM BROMIDE 50 MG/5 ML VIAL As Ordered ONE (07:19)
[2020-07-28] MEDS ORDERED: LIDOCAINE 2% 100MG/5ML SDV (FOR ANES.) As Ordered ONE (07:19)
[2020-07-28] MEDS ORDERED: dexameTHASONE 4 MG/ML 1ML VIAL (J1100 PER 1MG) As Ordered ONE (07:19)
[2020-07-28] MEDS ORDERED: fentaNYL 100 MCG/2 ML INJECTION (J3010) As Ordered ONE (07:20)
[2020-07-28] MEDS ORDERED: MIDAZOLAM INJ 2MG/2ML VIAL (J2250 PER 1MG) As Ordered ONE (07:20)
[2020-07-28] MEDS ORDERED: LABETALOL 100MG/20ML VIAL As Ordered ONE (08:05)
[2020-07-28] MEDS ORDERED: ePHEDrine SULFATE 25 MG/5 ML(5MG/ML) SYRINGE As Ordered ONE ×3 (08:12→10:16)
[2020-07-28] MEDS ORDERED: SUGAMMADEX SODIUM 500 MG/5 ML VIAL (BRIDION) As Ordered ONE (08:32)
[2020-07-28] MEDS ORDERED: LACRILUBE (AKWA TEARS) OPHTH OINT 3.5 GM As Ordered ONE (08:32)
[2020-07-28] MEDS ORDERED: oxyCODONE 5MG TAB As Ordered ONE (09:36)
--- NOTE | 2020-07-28 09:38 | REP ---
INDICATION: S/P EBUS. COMPARISON: Comparison chest CT study July 22 2020. TECHNIQUE: Portable chest x-ray: Two views, inspiration and expiration views.. FINDINGS: There is no evidence of pneumothorax or hydrothorax. Mild platelike atelectasis is seen in the left lung base. There is a nodular opacity visible in the left lung apex. Lung mancera are otherwise clear. Heart is not enlarged.. IMPRESSION: Left apical lung nodule. No evidence of pneumothorax.. <Electronically signed by Sal Mcmillan > 07/28/20 [id number]
[2020-07-28] MEDS: oxyCODONE 5MG TAB PO PRN ×2 (09:39→10:19)
[2020-07-28] MEDS: fentaNYL 100 MCG/2 ML INJECTION (J3010) IV PRN ×4 (09:43→10:00)
[2020-07-28] MEDS ORDERED: METOCLOPRAMIDE INJ 10MG/2ML VIAL (J2765 PER 1) IV PRN (09:45)
[2020-07-28] MEDS ORDERED: LR 1,000 ML IV SCH (09:45)
[2020-07-28] MEDS ORDERED: ONDANSETRON 4MG/2ML VIAL IV PRN (09:45)
[2020-07-28 12:02] VITALS: BP 138/71
--- NOTE | 2020-07-28 12:25 | REP ---
INDICATION: ? posterior pneumothorax right. COMPARISON: 07/28/2020 9:22 a.m.. TECHNIQUE: SINGLE PORTABLE AP VIEW OF THE CHEST WAS PERFORMED. FINDINGS: No pneumothorax is seen. The lung mancera are unchanged in appearance. The heart mediastinum are unchanged. IMPRESSION: Stable exam. No pneumothorax visualized. <Electronically signed by Mane Terrazas > 07/28/20 1963
--- NOTE | 2020-07-28 13:21 | ROOR ---
Patient Name: Des Diego Procedure Date: 07/28/2020 7:28 AM Date of : 1975 Admit Type: Outpatient Age: 44 Note Status: Finalized Attending MD: Mari Lincoln MD Procedure: Bronchoscopy Indications: Left upper lobe nodule, Mediastinal adenopathy, Paratracheal adenopathy Providers: Mari Lincoln MD (Doctor), Brad Fernández MD (1st Assisting Doctor) Referring MD: Marcial Grimaldo (Referring MD) Requesting Physician: Medicines: Lidocaine 4% via nebulizer with Albuterol 2.5 mg, General Anesthesia, Epinephrine 1 mg/10 mL topical 1 mL, Cetacaine topical Complications: No immediate complications. Estimated blood loss: Minimal. In post-op recovery CXR showed possible small asymptomatic pneumothorax at left base of lung. repeat CXR 2 hrs later did not show any appreciable pneumothorax. Procedure: Pre-Anesthesia Assessment: - Prior to the procedure, a History and Physical was performed, and patient medications and allergies were reviewed. The patient's tolerance of previous anesthesia was also reviewed. The risks and benefits of the procedure and the sedation options and risks were discussed with the patient. All questions were answered, and informed consent was obtained. Prior Anticoagulants: The patient has taken no previous anticoagulant or antiplatelet agents. ASA Grade Assessment: II - A patient with mild systemic disease. After reviewing the risks and benefits, the patient was deemed in satisfactory condition to undergo the procedure. - Patient identification and proposed procedure were verified prior to the procedure by the physician, the nurse, the qa lead and the quick technician. The procedure was verified in the procedure room. The Bronchoscope was introduced through the mouth, via the endotracheal tube (the patient was intubated for the procedure) and advanced to the tracheobronchial tree of both lungs. The procedure was accomplished without difficulty. The patient tolerated the procedure well. Findings: The endotracheal tube is in good position. The visualized portion of the trachea is of normal caliber. The zechariah is sharp. The tracheobronchial tree was examined to at least the first subsegmental level. Bronchial mucosa and anatomy are normal; there was some mucosal pitting and webbing. There are no endobronchial lesions, and scant secretions. Electromagnetic navigation bronchoscopy was performed. The CT scan was used for planning purposes. A virtual bronchoscopic image was generated using the planning software. The target in the apical-posterior segment of the left upper lobe was marked. A nodule 9 mm in size was found and a pathway was created. After a complete airway exam, the [employer] robotic electromagnetic navigation bronchoscopy was then begun to locate the target lesion(s). Positioning centrally (in relation to the lesion) was confirmed using the Olympus radial probe US catheter. Fluoroscopy guided transbronchial brushings of a nodule were obtained in the apical-posterior segment of the left upper lobe with a cytology brush and sent for routine cytology. Transbronchial brushing technique was selected because the sampling site was not visible endoscopically. Transbronchial biopsies of a nodule were performed in the apical-posterior segment of the left upper lobe using forceps and sent for histopathology examination. The procedure was guided by fluoroscopy. Transbronchial biopsy technique was selected because the sampling site was not visible endoscopically. There was no pneumothorax apically noted on fluoroscopy. An endobronchial ultrasound endoscope was utilized in order to assist with fine needle aspiration in the right paratracheal area and in the subcarinal area. On ultrasound imaging there was a rounded structure in within the right paratracheal lymph node that appeared to have a central opacity. It was attempted to be sampled as well with transbronchial needle aspiration but appeared to be a stiff round lesion Transbronchial needle aspirations of a lymph node were performed in the right paratracheal area and in the subcarinal area using an Olympus EBUS-TBNA 21 gauge needle and sent for routine cytology. The procedure was guided by ultrasound. Transbronchial needle aspiration technique was selected because the sampling site was not visible endoscopically. Impression: - Left upper lobe nodule - Mediastinal adenopathy - Paratracheal adenopathy - The airway examination was normal. - Electromagnetic navigation bronchoscopy was performed. - Transbronchial brushings were obtained. - Transbronchial lung biopsies were performed. - Endobronchial ultrasound was performed. - A transbronchial needle aspiration was performed. Recommendation: - Await test results. Procedure Code(s): --- Professional --- 88876, Bronchoscopy, rigid or flexible, including fluoroscopic guidance, when performed; with transbronchial needle aspiration biopsy(s), trachea, main stem and/or lobar bronchus(i) 85924, Bronchoscopy, rigid or flexible, including fluoroscopic guidance, when performed; with transbronchial lung biopsy(s), single lobe 78872, Bronchoscopy, rigid or flexible, including fluoroscopic guidance, when performed; with brushing or protected brushings 16776, Bronchoscopy, rigid or flexible, including fluoroscopic guidance, when performed; with computer-assisted, image-guided navigation (List separately in addition to code for primary procedure[s]) 21449, Bronchoscopy, rigid or flexible, including fluoroscopic guidance, when performed; with transendoscopic endobronchial ultrasound (EBUS) during bronchoscopic diagnostic or therapeutic intervention(s) for peripheral lesion(s) (List separately in addition to code for primary procedure[s]) CPT copyright 2019 [employer]. All rights reserved. The codes documented in this report are preliminary and upon pullman car clerk review may be revised to meet current compliance requirements. Attending Participation: I personally performed the entire procedure. Mari Lincoln MD 07/28/2020 1:20:41 PM Brad Fernández MD Number of Addenda: 0 Note Initiated On: 07/28/2020 7:28 AM
[2020-07-29] MEDS ORDERED: ATOR40TA75 PO (22:04)
[2020-07-29] MEDS ORDERED: HYDR12.55 PO (22:04)
[2020-07-29] MEDS ORDERED: LIDO1PAD TOP (22:04)
== END 2020-07-28 12:06 | disposition home or self-care (01) ==
LOC: M SDC 06:10
PROVIDERS: ATTEND Internal Medicine Pulmonary Disease
DX: R91.1 Solitary pulmonary nodule (principal); R59.0 Localized enlarged lymph nodes; I10 Essential (primary) hypertension; I20.9 Angina pectoris, unspecified; E78.5 Hyperlipidemia, unspecified; F17.210 Nicotine dependence, cigarettes, uncomplicated; F32.9 Major depressive disorder, single episode, unspecified; F41.9 Anxiety disorder, unspecified; G47.33 Obstructive sleep apnea (adult) (pediatric); M54.5 Low back pain; R06.00 Dyspnea, unspecified; R06.83 Snoring; R07.9 Chest pain, unspecified; Z79.899 Other long term (current) drug therapy
CPT/HCPCS: 31623; 31627; 31628; 31629; 31654; 71045; 76000; 88104; 88173; 88305; C1887; J1100; J2250; J3010

== ENCOUNTER 2020-07-29 18:40 | Inpatient (IN) | payer OTHER ==
[~2020-07-29] VITALS: Ht 177.8 cm; Wt 108.7 kg
[~2020-07-29 18:40] MED LIST changes: -ATOR40TA75 PO
--- OUTSIDE RECORDS SUMMARY | 2020-07-29 18:47 | CCD ---
Author Author [facility] Organization [facility] Address Unknown Phone Unavailable Care Team Providers Care Burglar Alarm Mechanic Name Role Phone Mari Lincoln MD Unavailable [...] Candelario Og MD Unavailable Unavailable Johnson, Candelario gO MD Unavailable Unavailable Johnson, Candelario Og MD [...] Unavailable SEE, M CHARAN PA Unavailable Unavailable ESE, M CHARAN PA Unavailable Unavailable SEE, M [...] is protected by Article 27-F of the [place] Public Health law. If you continue you may have access to information: Regarding HIV / AIDS; Provided by facilities licensed or operated by the [facility] Office of Mental Health; or Provided by the [facility] Office for People With Developmental Disabilities. If such information is present, then the following [facility] mandated warning applies: This information has been [...] Casillas/Justice/Fernando/Domenic [email or web address] 07/15/2020 08:30:00 AM EST [facility] ([facility], ) Outpatient Attender: CHARAN CERVANTES Physical Therapy 03/05 09:15:00 AM EDT [facility] Attender: CHARAN CERVANTES Physical Therapy 02/03 11:00:00 AM EDT [facility] Outpatient Attender: Uziel Camarillo Physical Therapy 01/22/2020 01:00:0 0 PM EDT [facility] ([facility] ) Outpatient Attender: Earle Johnson MD Physical Therapy 01/16/2020 0 9:00:00 AM EDT [facility] ([facility] ) Immunizations Vaccine Date Status Description Data Source(s) New in 2011. IIV4 07/01/2020 08:12:00 AM EST completed [facility] ([facility], ) Medications Medication Brand Name Start Date Product Form Dose Route Admi nistrative Instructions Pharmacy Instructions Status Indications Reaction Description Data Source(s) 8 HR Acetaminophen 650 MG Extended Release Oral Tablet [Tyle nol] Tylenol 8 Hour 10/21/2019 12:00:00 AM EDT active [facility] ([facility], ) Insurance Providers Payer name Policy type / Coverage type Policy ID Covered green party ID Covered green party's relationship to radford Policy Radford Plan Information [facility] ACTIVE DUTY [id number] SP [id number] [facility] [id number] SP [id number] ACTIVE DUTY [id number] [facility] REG O [id number] S [id number] ACTIVE DUTY [id number] SP [id number] Problems, Conditions, and Diagnoses Code Display Name Description Problem Type Effective Dates Data Source(s) 45969429 Carpal tunnel syndrome Carpal tunnel syndrome Problem 10/21/2019 12:00:00 AM EDT [facility] ([facility], ) [id number] Cervical radiculopathy Cervical radiculopathy Problem 10/21/2019 12:00:00 AM EDT [facility] ([facility], ) [id number] Chronic neck pain Chronic neck pain Problem 10/02 12:00:00 AM EDT [facility] ([facility], ) Surgeries/Procedures Procedure Description Date Indications Data Source(s) Injec Anesthetic Agent/Steroid Trans Epidural Cerv/Thor Sing le 03/15/2020 12:00:00 AM EDT [facility] ([facility] ) Epidurography Radiological Supervision & Interpretation 03/15/2020 12:00:00 AM EDT [facility] ([facility] ) Moderate Sedation Services; Same Phys Intl 15 Mins; PT >= 5 Years 03/15/2020 12:00:00 AM EDT [facility] ([facility] ) MRI Upper Extremity Any Joint 02/17/2020 12:00:00 AM E DT [facility] ([facility] ) Needle electromyography, each extremity, with related paraspinal areas, when performed, done with nerve conduction, amplitude and latency/velocity study; complete, five or more muscles studied, innervated by three or more nerves or four or more spinal levels (list separately in addition to the code for primary procedure). 10/21/2019 12:00:00 AM EDT [facility] T ([facility], ) Needle electromyography, each extremity, with related paraspinal areas, when performed, done with nerve conduction, amplitude and latency/velocity study; complete, five or more muscles studied, innervated by three or more nerves or four or more spinal levels (list separately in addition to the code for primary procedure). 10/21/2019 12:00:00 AM EDT [facility] T ([facility], ) Needle Electromyography Non Extremity Done With Nerve Conduc tion 10/21/2019 12:00:00 AM EDT [facility] ([facility]) [address] Nerve conduction studies 13 or more studies NEW 201210/21/2019 12:00:00 AM EDT [facility] ([facility]) Results ID Date Data Source [id number] 07/23/2020 01:25:00 PM EST [facility] Name Value Range Interpretation Code Description Data Ashanti rce(s) Supporting Document(s) SARS coronavirus 2 RNA Not Detected [facility] This lab was ordered by [facility] and reported by [facility]. ID Date Data Source [id number] 07/15/2020 09:14:00 AM EST [facility] ([facility], ) Name Value Range Interpretation Code Description Data Ashanti rce(s) Supporting Document(s) PDFReport Laboratory test result [facility] ([facility], ) FVC-%Pred-Pre 94 L [facility] ([facility]) FVC-Pred 5.06 L [facility] ([facility]) FVC-Pre 4.77 L [facility] ([facility]) Fev1-Pred 4.01 L [facility] ([facility]) Fev1-Pre 3.86 L [facility] ([facility]) FVC-LLN 4.15 L [facility] ([facility]) Fev1-LLN 3.24 L [facility] ([facility]) Fev1-%Pred-Pre 96 L [facility] ([facility]) Fev6-Pred 4.92 L [facility] ([facility]) Fev6-LLN 4.04 L [facility] ([facility]) Fev6-%Pred-Pre 96 L [facility] ([facility]) Fev6-Pre 4.77 L [facility] ([facility]) Ekr6ynr-Ziwd 79 % [facility] ([facility]) Uni2wth-Hqw 81 % [facility] ([facility]) Kfq4irg-Ppbt 97 % [facility] ([facility]) Iht4xqc-OUT 69 % [facility] ([facility]) Xrp4dco-%Pred-Pre 102 % [facility] ([facility]) Udu2yke-Kaf 100 % [facility] ([facility]) Nzb1agq-%Pred-Pre 102 % [facility] ([facility]) FEFMax-Pred 9.87 L/E/sec [facility] ([facility]) FEFMax-Pre 9.13 L/E/sec [facility] ([facility]) FEFMax-LLN 7.61 L/E/sec [facility] ([facility]) FEFMax-%Pred-Pre 92 L/E/sec [facility] ([facility]) Myr1596-Ymcn 3.73 L/E/sec [facility] ([facility]) Brt1766-%Pred-Pre 102 L/E/sec [facility] ([facility]) Nvp0068-Gae 3.82 L/E/sec [facility] ([facility]) Pst9eyu2-Ctkm 81 % [facility] ([facility]) ExpTime-Pre 6.08 sec [facility] ([facility]) Gma9801-OYE 2.17 L/E/sec [facility] ([facility]) Bym8yhd3-Eca 81 % [facility] ([facility]) Ype7gtd0-MCL 72 % [facility] ([facility]) Koy8hgy4-%Pred-Pre 99 % [facility] ([facility]) ID Date Data Source [id number] 06/08/2020 12:00:00 AM EST [facility] HELEN Hernandez Patient Name: BECKA [id number] Natasha Davis Date of : 1975[address] [place] [address] [facility] Exam[facility]#: Fax: [phone] EXAM: CT THORAX WITH CONTRASTCLINICAL INFORMATION: Followup lung nodule which by history measured 4 mmin size.The prior examination is in [facility] and no prior images are availablefor comparison.Low dose [address] scanning of the chest was obtained using 3 mmincrements after the administration of intravenous contrast andreconstructed in both coronal and sagittal scan planes. 75 cc of [id number] was administered intravenously.There is a single enlarged [...] Mediastinal adenopathy as described above.Accredited by the [employer] in [place].JUANA Grimes/Salbador you for referring BECKA ADHIKARI to our office. Electronically Signed - INDER LANE DO 06/09/20 15:12 Name Value Range Interpretation Code Description Data Ashanti rce(s) Supporting Document(s) ID Date Data Source [id number] 03/12/2020 11:26:00 AM EDT [facility] ([facility] ) Name Value Range Interpretation Code Description Data Ashanti rce(s) Supporting Document(s) Prothrombin time (PT) 27.4 s 24.2-38.5 [facility] ([facility] ) ID Date Data Source [id number] 03/12/2020 11:26:00 AM EDT [facility] ([facility] ) Name Value Range Interpretation Code Description Data Ashanti rce(s) Supporting Document(s) Prothrombin Time 12.6 s 12.5-14.3 [facility] ([facility]) Inr 0.93 [facility] ([facility] ) THERAPUTIC HUMAN INR VALUES INDICATIONS NORMAL RANGES PROPHYLAXIS/TREATMENT OF: VENOUS THROMBOSIS 2.0-3.0 PULMONARY EMBOLISM 2.0-3.0 PREVENTION OF SYSTEMIC EMBOLISM FROM: TISSUE HEART VALVES 2.0-3.0 ACUTE MYOCARDIAL INFARCTION 2.0-3.0 VALVULAR HEART DISEASE 2.0-3.0 ATRIAL FIBRILLATION 2.0-3.0 MECHANICAL VALVES(HIGH RISK) 2.5-3.5 RECURRENT MYOCARDIAL INFARCTION 2.5-3.5 ID Date Data Source [id number] 03/12/2020 11:26:00 AM EDT [facility] ([facility] ) Name Value Range Interpretation Code Description Data Ashanti rce(s) Supporting Document(s) Platelets [#/volume] in Blood by Automated count 338 10 150-450 [facility] ID Date Data Source [id number] 03/12/2020 11:26:00 AM EDT [facility] ([facility] ) Name Value Range Interpretation Code Description Data Ashanti rce(s) Supporting Document(s) Collagen Epinephrine 124 s 74-162 [facility] ([facility] ) Results may be affected by platelet coun ts less than 150,000/mL or hematocrits less than 35%. If COL/EPI is NORMAL, COL/ADP is not performed. Result Interpretation: COL/EPI COL/ADP NORMAL NORMAL NORMAL ASA ABNORMAL NORMAL vWD ABNORMAL NORMAL GLANZMANN'S ABNORMAL ABNORMAL THROMBASTHENIA POSSIBLE DRUG ABNORMAL ABNORMAL EFFECT ID Date Data Source [id number] 02/10/2020 02:15:00 PM EDT [facility] ([facility] ) Name Value Range Interpretation Code Description Data Ashanti rce(s) Supporting Document(s) Platelet aggregation collagen induced [Presence] in Platelet rich plasma 100 s 56-103 [facility] ([facility]) Results may be affected by platelet coun ts less than 150,000/mL or hematocrits less than 35%. ID Date Data Source [id number] 02/10/2020 02:15:00 PM EDT [facility] ([facility]) Name Value Range Interpretation Code Description Data Ashanti rce(s) Supporting Document(s) Collagen Epinephrine 210 s 74-162 [facility] Results may be affected by platelet coun ts less than 150,000/mL or hematocrits less than 35%. If COL/EPI is NORMAL, COL/ADP is not performed. Result Interpretation: COL/EPI COL/ADP NORMAL NORMAL NORMAL ASA ABNORMAL NORMAL vWD ABNORMAL NORMAL GLANZMANN'S ABNORMAL ABNORMAL THROMBASTHENIA POSSIBLE DRUG ABNORMAL ABNORMAL EFFECT ID Date Data Source [id number] 02/10/2020 02:15:00 PM EDT [facility] Name Value Range Interpretation Code Description Data Ashanti rce(s) Supporting Document(s) Prothrombin time (PT) Laboratory test result [facility] ([facility]) Platelets [#/volume] in Blood by Automated count Laboratory test resu lt [facility] ([facility]) Procedure Social History Code Duration Value Status Description Data Source(s ) 07/15/2020 12:00:00 AM EST Patient is a current smoker, smokes every day completed Patient is a current smoker, smokes every day [facility] ( [facility]) Vital Signs ID Date Data Source UNK Name Value Range Interpretation Code Description Data Source(s) Body surface area Derived from formula 2.19 m2 2.19 m2 [facility] ([facility]) Body weight 104.328 kg 104.328 kg [facility] ([facility]) Dwarf body weight 160 [lb_av] 160 [lb_av] [facility] Body mass index (BMI) [Ratio] 34.0 kg/m2 34.0 k g/m2 [facility] ([facility]) Body weight 230.00 [lb_av] 230.00 [lb_av] [facility] Body height 69 [in_i] 69 [in_i] [facility] ([facility]) 5'9" Body temperature 96.6 [degF] 96.6 [degF] [facility] ([facility], ) Oxygen saturation in Arterial blood by Pulse oximetry 98 % 98 % [facility] ([facility], ) Heart rate 95 /min 95 /min [facility] ([facility], ) Diastolic blood pressure 76 mm[Hg] 76 mm[Hg] [facility] ([facility]) Systolic blood pressure 132 mm[Hg] 132 mm[Hg] [facility] Body mass index (BMI) [Ratio] 34.0 kg/m2 34.0 k g/m2 [facility] ([facility] ) Body weight 230.00 [lb_av] 230.00 [lb_av] [facility] ([facility] ) Body height 69 [in_i] 69 [in_i] [facility] ([facility] ) 5'9" Body temperature 97.7 [degF] 97.7 [degF] [facility] ([facility] ) Body mass index (BMI) [Ratio] 33.2 kg/m2 33.2 k g/m2 [facility] ([facility] ) Body weight 225.00 [lb_av] 225.00 [lb_av] [facility] ([facility] ) Body height 69 [in_i] 69 [in_i] [facility] ([facility] ) 5'9" Body temperature 97.6 [degF] 97.6 [degF] [facility] ([facility] ) Body mass index (BMI) [Ratio] 34.0 kg/m2 34.0 k g/m2 [facility] ([facility], ) Body weight 230.00 [lb_av] 230.00 [lb_av] [facility] ([facility], ) Body height 69 [in_i] 69 [in_i] [facility] ([facility], ) 5'9" Heart rate 72 /min 72 /min [facility] ([facility], ) Diastolic blood pressure 80 mm[Hg] 80 mm[Hg] [facility] ([facility], ) Systolic blood pressure 120 mm[Hg] 120 mm[Hg] [facility] ([facility])
[2020-07-29] MEDS ORDERED: KETOROLAC 30 MG/ML 1ML VIAL IV ONE (20:15)
[2020-07-29] MEDS ORDERED: BENZONATATE 100 MG CAP PO ONE (20:15)
--- OUTSIDE RECORDS SUMMARY | 2020-07-29 20:17 | CCD ---
Author Author [facility] Organization [facility] Address Unknown Phone Unavailable Care Team Providers Care Algology Teacher Name Role Phone Mari Lincoln MD Unavailable [...] Johnson, Candelario Og MD Unavailable Unavailable Johnson, Cadnelario Og MD Unavailable Unavailable Johnson, Candelario Og [...] is protected by Article 27-F of the [place] State Public Health law. If you continue you may have access to information: Regarding HIV / AIDS; Provided by facilities licensed or operated by the [facility] Office of Mental Health; or Provided by the [facility] Office for People With Developmental Disabilities. If such information is present, then the following [facility] mandated warning applies: This information [...] law may result in a fine or retirement sentence or both. A general authorization for the release of medical or other information is NOT sufficient authorization for further disc losure. Encounters Encounter Providers Location Date Indications Data Source(s ) Office Visit Attender: Mari Casillas/Justice/Fernando/Domenic ndcandelario 07/15/2020 08:30:00 AM EST [facility] ([facility], ) Outpatient Attender: CHARAN CERVANTES Physical Therapy 03/05 09:15:00 AM EDT [facility] Outpatient Attender: CHARAN CERVANTES Physical Therapy 02/03 11:00:00 AM EDT [facility] Outpatient Attender: Uziel Camarillo Physical Therapy 01/22/2020 01:00:0 0 PM EDT [facility] ([facility] ) Outpatient Attender: Earle Johnson MD Physical Therapy 01/16/2020 0 9:00:00 AM EDT [facility] ([facility] ) Immunizations Vaccine Date Status Description Data Source(s) New in 2011. IIV4 07/01/2020 08:12:00 AM EST completed [facility] ([facility], ) Medications Medication Brand Name Start Date Product Form Dose Route Admi nistrative Instructions Pharmacy Instructions Status Indications Reaction Description Data Source(s) 8 HR Acetaminophen 650 MG Extended Release Oral Tablet [Tyle nol] Tylenol 8 Hour 10/21/2019 12:00:00 AM EDT active [facility] ([facility], ) Insurance Providers Payer name Policy type / Coverage type Policy ID Covered democrat ID Covered democrat's relationship to radford Policy Radford Plan Information [facility] ACTIVE DUTY [id number] SP [id number] [facility] [id number] SP [id number] ACTIVE DUTY [id number] [facility] REG O [id number] S [id number] ACTIVE DUTY [id number] SP [id number] Problems, Conditions, and Diagnoses Code Display Name Description Problem Type Effective Dates Data Source(s) 28541828 Carpal tunnel syndrome Carpal tunnel syndrome Problem 10/21/2019 12:00:00 AM EDT [facility] ([facility], ) [id number] Cervical radiculopathy Cervical radiculopathy Problem 10/21/2019 12:00:00 AM EDT [facility] ([facility], ) [id number] Chronic neck pain Chronic neck pain Problem 10/02 12:00:00 AM EDT [facility] ([facility], ) Surgeries/Procedures Procedure Description Date Indications Data Source(s) Injec Anesthetic Agent/Steroid Trans Epidural Cerv/Thor Sing le 03/15/2020 12:00:00 AM EDT [facility] ([facility] ) Epidurography Radiological Supervision & Interpretation 03/15/2020 12:00:00 AM EDT [facility] ([facility] ) Moderate Sedation Services; Same Phys Intl 15 Mins; PT >= 5 Years 03/15/2020 12:00:00 AM EDT [facility] ([facility] ) MRI Upper Extremity Any Joint 02/17/2020 12:00:00 AM E DT [facility] ([facility] ) Needle electromyography, each extremity, with related paraspinal areas, when performed, done with nerve conduction, amplitude and latency/velocity study; complete, five or more muscles studied, innervated by three or more nerves or four or more spinal levels (list separately in addition to the code for primary procedure). 10/21/2019 12:00:00 AM EDT [facility] T ([facility], ) Needle electromyography, each extremity, with related paraspinal areas, when performed, done with nerve conduction, amplitude and latency/velocity study; complete, five or more muscles studied, innervated by three or more nerves or four or more spinal levels (list separately in addition to the code for primary procedure). 10/21/2019 12:00:00 AM EDT [facility] ([facility], ) Needle Electromyography Non Extremity Done With Nerve Conduc tion 10/21/2019 12:00:00 AM EDT [facility] ([facility]) [id number] Nerve conduction studies 13 or more studies NEW 201210/21/2019 12:00:00 AM EDT [facility] ([facility]) Results ID Date Data Source [id number] 07/23/2020 01:25:00 PM EST [facility] Name Value Range Interpretation Code Description Data Ashanti rce(s) Supporting Document(s) SARS coronavirus 2 RNA Not Detected [facility] This lab was ordered by [facility] and reported by [facility]. ID Date Data Source [id number] 07/15/2020 09:14:00 AM EST [facility] ([facility], ) Name Value Range Interpretation Code Description Data Ashanti rce(s) Supporting Document(s) PDFReport Laboratory test result [facility] ([facility], ) FVC-%Pred-Pre 94 L [facility] ([facility]) FVC-Pred 5.06 L [facility] ([facility]) FVC-Pre 4.77 L [facility] ([facility]) Fev1-Pred 4.01 L [facility] ([facility]) Fev1-Pre 3.86 L [facility] ([facility]) FVC-LLN 4.15 L [facility] ([facility]) Fev1-LLN 3.24 L [facility] ([facility]) Fev1-%Pred-Pre 96 L [facility] ([facility]) Fev6-Pred 4.92 L [facility] ([facility]) Fev6-LLN 4.04 L [facility] ([facility]) Fev6-%Pred-Pre 96 L [facility] ([facility]) Fev6-Pre 4.77 L [facility] ([facility]) Uay5yjo-Ldlv 79 % [facility] ([facility]) Qlg4ezy-Fwd 81 % [facility] ([facility]) Jcu7dkm-Vhvg 97 % [facility] ([facility]) Lco6rvp-WPK 69 % [facility] ([facility]) Vik9oau-%Pred-Pre 102 % [facility] ([facility]) Ezm1ofq-Lco 100 % [facility] ([facility]) Vst5mxw-%Pred-Pre 102 % [facility] ([facility]) FEFMax-Pred 9.87 L/E/sec [facility] ([facility]) FEFMax-Pre 9.13 L/E/sec [facility] ([facility]) FEFMax-LLN 7.61 L/E/sec [facility] ([facility]) FEFMax-%Pred-Pre 92 L/E/sec [facility] ([facility]) Vef6416-Afkv 3.73 L/E/sec [facility]) Mra8471-%Pred-Pre 102 L/E/sec [facility] ([facility]) Fyw3676-Rpz 3.82 L/E/sec [facility] ([facility]) Qyu9lcp9-Uxvd 81 % [facility] ([facility]) ExpTime-Pre 6.08 sec [facility] ([facility]) Oix4602-LSO 2.17 L/E/sec [facility] ([facility]) Pqg3pcb2-Ziq 81 % [facility] ([facility]) Gua9oer7-MVL 72 % [facility] ([facility]) Evw5nvq8-%Pred-Pre 99 % [facility] ([facility]) ID Date Data Source [id number] 06/08/2020 12:00:00 AM EST [facility] HELEN Hernandez Patient Name: BECKA [id number] Natasha Davis Date of : 1975Joes[birth year] [place] [address] Date of Exam: [facility]#: Fax: [phone] EXAM: CT THORAX WITH CONTRASTCLINICAL [...] and sagittal scan planes. 75 cc of Fhumnyr500 was administered intravenously.There is a single enlarged [...] Mediastinal adenopathy as described above.Accredited by the [employer] in [place].JUANA Grimes/Salbador you for referring BECKA ADHIKARI to our office. Electronically Signed - INDER LANE DO 06/09/20 15:12 Name Value Range Interpretation Code Description Data Ashanti rce(s) Supporting Document(s) ID Date Data Source [id number] 03/12/2020 11:26:00 AM EDT [facility] ([facility] ) Name Value Range Interpretation Code Description Data Ashanti rce(s) Supporting Document(s) Prothrombin time (PT) 27.4 s 24.2-38.5 [facility] ([facility] ) ID Date Data Source [id number] 03/12/2020 11:26:00 AM EDT [facility] ([facility] ) Name Value Range Interpretation Code Description Data Ashanti rce(s) Supporting Document(s) Prothrombin Time 12.6 s 12.5-14.3 [facility] ([facility]) Inr 0.93 [facility] ([facility] ) THERAPUTIC HUMAN INR VALUES INDICATIONS NORMAL RANGES PROPHYLAXIS/TREATMENT OF: VENOUS THROMBOSIS 2.0-3.0 PULMONARY EMBOLISM 2.0-3.0 PREVENTION OF SYSTEMIC EMBOLISM FROM: TISSUE HEART VALVES 2.0-3.0 ACUTE MYOCARDIAL INFARCTION 2.0-3.0 VALVULAR HEART DISEASE 2.0-3.0 ATRIAL FIBRILLATION 2.0-3.0 MECHANICAL VALVES(HIGH RISK) 2.5-3.5 RECURRENT MYOCARDIAL INFARCTION 2.5-3.5 ID Date Data Source [id number] 03/12/2020 11:26:00 AM EDT [facility] ([facility] ) Name Value Range Interpretation Code Description Data Ashanti rce(s) Supporting Document(s) Platelets [#/volume] in Blood by Automated count 338 10 150-450 [facility] ID Date Data Source [id number] 03/12/2020 11:26:00 AM EDT [facility] ([facility] ) Name Value Range Interpretation Code Description Data Ashanti rce(s) Supporting Document(s) Collagen Epinephrine 124 s 74-162 [facility] ([facility] ) Results may be affected by platelet coun ts less than 150,000/mL or hematocrits less than 35%. If COL/EPI is NORMAL, COL/ADP is not performed. Result Interpretation: COL/EPI COL/ADP NORMAL NORMAL NORMAL ASA ABNORMAL NORMAL vWD ABNORMAL NORMAL GLANZMANN'S ABNORMAL ABNORMAL THROMBASTHENIA POSSIBLE DRUG ABNORMAL ABNORMAL EFFECT ID Date Data Source [id number] 02/10/2020 02:15:00 PM EDT [facility] ([facility] ) Name Value Range Interpretation Code Description Data Ashanti rce(s) Supporting Document(s) Platelet aggregation collagen induced [Presence] in Platelet rich plasma 100 s 56-103 [facility] ([facility]) Results may be affected by platelet coun ts less than 150,000/mL or hematocrits less than 35%. ID Date Data Source [id number] 02/10/2020 02:15:00 PM EDT [facility] ([facility]) Name Value Range Interpretation Code Description Data Ashanti rce(s) Supporting Document(s) Collagen Epinephrine 210 s 74-162 [facility] Results may be affected by platelet coun ts less than 150,000/mL or hematocrits less than 35%. If COL/EPI is NORMAL, COL/ADP is not performed. Result Interpretation: COL/EPI COL/ADP NORMAL NORMAL NORMAL ASA ABNORMAL NORMAL vWD ABNORMAL NORMAL GLANZMANN'S ABNORMAL ABNORMAL THROMBASTHENIA POSSIBLE DRUG ABNORMAL ABNORMAL EFFECT ID Date Data Source [id number] 02/10/2020 02:15:00 PM EDT [facility] Name Value Range Interpretation Code Description Data Ashanti rce(s) Supporting Document(s) Prothrombin time (PT) Laboratory test result [facility] ([facility]) Platelets [#/volume] in Blood by Automated count Laboratory test resu lt [facility] ([facility]) Procedure Social History Code Duration Value Status Description Data Source(s ) 07/15/2020 12:00:00 AM EST Patient is a current smoker, smokes every day completed Patient is a current smoker, smokes every day [facility] ( [facility]) Vital Signs ID Date Data Source UNK Name Value Range Interpretation Code Description Data Source(s) Body surface area Derived from formula 2.19 m2 2.19 m2 [facility] ([facility]) Body weight 104.328 kg 104.328 kg [facility] ([facility]) [place] body weight 160 [lb_av] 160 [lb_av] [facility] Body mass index (BMI) [Ratio] 34.0 kg/m2 34.0 k g/m2 [facility] ([facility]) Body weight 230.00 [lb_av] 230.00 [lb_av] [facility] Body height 69 [in_i] 69 [in_i] [facility] ([facility]) 5'9" Body temperature 96.6 [degF] 96.6 [degF] [facility] ([facility], ) Oxygen saturation in Arterial blood by Pulse oximetry 98 % 98 % [facility] ([facility], ) Heart rate 95 /min 95 /min [facility] ([facility], ) Diastolic blood pressure 76 mm[Hg] 76 mm[Hg] [facility]) Systolic blood pressure 132 mm[Hg] 132 mm[Hg] [facility] Body mass index (BMI) [Ratio] 34.0 kg/m2 34.0 k g/m2 [facility] ([facility] ) Body weight 230.00 [lb_av] 230.00 [lb_av] [facility] ([facility] ) Body height 69 [in_i] 69 [in_i] [facility] ([facility] ) 5'9" Body temperature 97.7 [degF] 97.7 [degF] [facility] ([facility] ) Body mass index (BMI) [Ratio] 33.2 kg/m2 33.2 k g/m2 [facility] ([facility] ) Body weight 225.00 [lb_av] 225.00 [lb_av] [facility] ([facility] ) Body height 69 [in_i] 69 [in_i] [facility] ([facility] ) 5'9" Body temperature 97.6 [degF] 97.6 [degF] [facility] ([facility] ) Body mass index (BMI) [Ratio] 34.0 kg/m2 34.0 k g/m2 [facility] ([facility], ) Body weight 230.00 [lb_av] 230.00 [lb_av] [facility] ([facility], ) Body height 69 [in_i] 69 [in_i] [facility] ([facility], ) 5'9" Heart rate 72 /min 72 /min [facility] ([facility], ) Diastolic blood pressure 80 mm[Hg] 80 mm[Hg] [facility] ([facility], ) Systolic blood pressure 120 mm[Hg] 120 mm[Hg] [facility] ([facility])
[2020-07-29 20:29] LABS: BASO # 0.1 10^3/uL (0.0-0.2); BASO % 0.6 % (0.0-1.0); EOS # 0.1 10^3/uL (0.0-0.5); HEMATOCRIT 43.6 % (42.0-52.0); HEMOGLOBIN 14.3 g/dl (13.5-17.5); LYMPH # 3.7 10^3/uL (1.5-5.0); LYMPH % 26.2 % (24.0-44.0); MEAN CORPUSCULAR HEMOGLOBIN 29.7 pg (27.0-33.0); MEAN CORPUSCULAR HGB CONC 32.8 g/dl (32.0-36.5); MEAN CORPUSCULAR VOLUME 90.5 fl (80.0-96.0); MONO # 0.8 10^3/uL (0.0-0.8); MONO % 5.7 % (2.0-8.0); NEUTROPHILS # 9.2 10^3/uL (1.5-8.5); NEUTROPHILS % 65.9 % (36.0-66.0); PLATELET COUNT, AUTOMATED 323 10^3/uL (150-450); RED BLOOD COUNT 4.82 10^6/uL (4.30-6.10)
[2020-07-29 20:42] LABS: BLOOD UREA NITROGEN 9 MG/DL (7-18); CALCIUM LEVEL 8.4 MG/DL (8.5-10.1); CARBON DIOXIDE LEVEL 28 MEQ/L (21-32); CHLORIDE LEVEL 109 MEQ/L (98-107); CREATININE FOR GFR 0.97 MG/DL (0.70-1.30); GLOMERULAR FILTRATION RATE > 60.0 (>60); GLUCOSE, FASTING 91 MG/DL (70-100); POTASSIUM SERUM 3.9 MEQ/L (3.5-5.1); SODIUM LEVEL 141 MEQ/L (136-145)
[2020-07-29 20:57] LABS: RSV AMPLIFICATION NEGATIVE (NEGATIVE)
[2020-07-29] MEDS: **NOTE PATIENT COMMENT** MISC XX SCH (21:00)
--- NOTE | 2020-07-29 21:04 | REPVR ---
PROCEDURE INFORMATION: Exam: XR Chest Exam date and time: 07/29/2020 7:53 PM Age: 44 years old Clinical indication: Other: Pneumothorax TECHNIQUE: Imaging protocol: XR of the chest Views: 2 views. COMPARISON: [facility] PORTABLE CHEST X-RAY 07/28/2020 11:22 AM FINDINGS: Lungs: Lungs are clear. Pleural spaces: Left apical pneumothorax is again demonstrated with approximately 15 mm of air in the left lung apex, similar to the prior exam. No pleural effusion. Heart/Mediastinum: Unremarkable. No cardiomegaly. Bones/joints: Unremarkable. IMPRESSION: Stable left apical pneumothorax. Electronically signed by: Ihsan Burton On 07/29/2020 21:05:10 PM
[2020-07-29] MEDS: MORPHINE 2 MG/ML 1ML VIAL (J2270) IV PRN ×2 (21:05→22:51)
[2020-07-29] MEDS ORDERED: ATOR40TA75 PO (22:04)
[2020-07-29] MEDS ORDERED: HYDR12.55 PO (22:04)
[2020-07-29] MEDS ORDERED: LIDO1PAD TOP (22:04)
[2020-07-29] MEDS ORDERED: LIDOCAINE 5% (LIDODERM) PATCH TOP PRN (22:10)
[2020-07-29] MEDS ORDERED: MOM 30ML SUSPENSION UDC PO PRN (22:10)
[2020-07-29] MEDS ORDERED: MAALOX 30 ML SUSP *UDC PO PRN (22:10)
[2020-07-29] MEDS ORDERED: ACETAMINOPHEN TAB 650MG DOSE (2X325MG) PO PRN (22:10)
--- OUTSIDE RECORDS SUMMARY | 2020-07-29 22:22 | CCD ---
Author Author [facility] Organization [facility] Address Unknown Phone Unavailable Care Team Providers Care Crisis Therapist Name Role Phone Mari Lincoln MD Unavailable [...] Johnson, Candelario Og MD Unavailable Unavailable Johnson, Candealrio Og MD Unavailable Unavailable Johnson, Candelario Og [...] is protected by Article 27-F of the [place] State Public Health law. If you continue you may have access to information: Regarding HIV / AIDS; Provided by facilities licensed or operated by the [facility] Office of Mental Health; or Provided by the [facility] Office for People With Developmental Disabilities. If such information is present, then the following [facility] mandated warning applies: This information has been [...] law may result in a fine or care home sentence or both. A general authorization for the release of medical or other information is NOT sufficient authorization for further disc losure. Encounters Encounter Providers Location Date Indications Data Source(s ) Office Visit Attender: Mari Casillas/Justice/Fernnado/Domenic ndcandelario 07/15/2020 08:30:00 AM EST [facility] ([facility], ) Outpatient Attender: CHARAN CERVANTES Physical Therapy 03/05 09:15:00 AM EDT [facility] Outpatient Attender: CHARAN CERVANTES Physical Therapy 02/03 11:00:00 AM EDT [facility] Outpatient Attender: Uziel Camarillo Physical Therapy 01/22/2020 01:00:0 0 PM EDT [facility] ([facility] ) Outpatient Attender: Earle Johnson MD Physical Therapy 01/16/2020 0 9:00:00 AM EDT [facility] ([facility] ) Immunizations Vaccine Date Status Description Data Source(s) New in 2011. IIV4 07/01/2020 08:12:00 AM EST completed [facility] ([facility], ) Medications Medication Brand Name Start Date Product Form Dose Route Admi nistrative Instructions Pharmacy Instructions Status Indications Reaction Description Data Source(s) 8 HR Acetaminophen 650 MG Extended Release Oral Tablet [Tyle nol] Tylenol 8 Hour 10/21/2019 12:00:00 AM EDT active [facility] ([facility], ) Insurance Providers Payer name Policy type / Coverage type Policy ID Covered libertarian ID Covered libertarian's relationship to radford Policy Radford Plan Information [facility] ACTIVE DUTY [id number] SP [id number] [facility] [id number] SP [id number] ACTIVE DUTY [id number] [facility] O [id number] S [id number] ACTIVE DUTY [id number] SP [id number] Problems, Conditions, and Diagnoses Code Display Name Description Problem Type Effective Dates Data Source(s) 46646888 Carpal tunnel syndrome Carpal tunnel syndrome Problem 10/21/2019 12:00:00 AM EDT [facility] ([facility], ) [id number] Cervical radiculopathy Cervical radiculopathy Problem 10/21/2019 12:00:00 AM EDT [facility] ([facility], ) [id number] Chronic neck pain Chronic neck pain Problem 10/02 12:00:00 AM EDT [facility] ([facility], ) Surgeries/Procedures Procedure Description Date Indications Data Source(s) Injec Anesthetic Agent/Steroid Trans Epidural Cerv/Thor Sing le 03/15/2020 12:00:00 AM EDT [facility] ([facility] ) Epidurography Radiological Supervision & Interpretation 03/15/2020 12:00:00 AM EDT [facility] ([facility] ) Moderate Sedation Services; Same Phys Intl 15 Mins; PT >= 5 Years 03/15/2020 12:00:00 AM EDT [facility] ([facility] ) MRI Upper Extremity Any Joint 02/17/2020 12:00:00 AM E DT [facility] ([facility] ) Needle electromyography, each extremity, with related paraspinal areas, when performed, done with nerve conduction, amplitude and latency/velocity study; complete, five or more muscles studied, innervated by three or more nerves or four or more spinal levels (list separately in addition to the code for primary procedure). 10/21/2019 12:00:00 AM EDT MED[facility] T ([facility], ) Needle electromyography, each extremity, with related paraspinal areas, when performed, done with nerve conduction, amplitude and latency/velocity study; complete, five or more muscles studied, innervated by three or more nerves or four or more spinal levels (list separately in addition to the code for primary procedure). 10/21/2019 12:00:00 AM EDT MED[facility] T ([facility], ) Needle Electromyography Non Extremity Done With Nerve Conduc tion 10/21/2019 12:00:00 AM EDT [facility] ([facility]) [address] Nerve conduction studies 13 or more studies NEW 201210/21/2019 12:00:00 AM EDT [facility] ([facility]) Results ID Date Data Source [id number] 07/23/2020 01:25:00 PM EST [facility] Name Value Range Interpretation Code Description Data Ashanti rce(s) Supporting Document(s) SARS coronavirus 2 RNA Not Detected [facility] This lab was ordered by [facility] and reported by [facility]. ID Date Data Source [id number] 07/15/2020 09:14:00 AM EST [facility] ([facility], ) Name Value Range Interpretation Code Description Data Ashanti rce(s) Supporting Document(s) PDFReport Laboratory test result [facility] ([facility], ) FVC-%Pred-Pre 94 L [facility] ([facility]) FVC-Pred 5.06 L [facility] ([facility]) FVC-Pre 4.77 L [facility] ([facility]) Fev1-Pred 4.01 L [facility] ([facility]) Fev1-Pre 3.86 L [facility] ([facility]) FVC-LLN 4.15 L [facility] ([facility]) Fev1-LLN 3.24 L [facility] ([facility]) Fev1-%Pred-Pre 96 L [facility] ([facility]) Fev6-Pred 4.92 L [facility] ([facility]) Fev6-LLN 4.04 L [facility] ([facility]) Fev6-%Pred-Pre 96 L [facility] ([facility]) Fev6-Pre 4.77 L [facility] ([facility]) Xay3tvk-Phxs 79 % [facility] ([facility]) Hdf3ckl-Mkm 81 % [facility] ([facility]) Xvs8jsh-Ylnu 97 % [facility] ([facility]) Ics2ojo-TNY 69 % [facility] ([facility]) Ara8aby-%Pred-Pre 102 % [facility] ([facility]) Grj8swm-Yir 100 % [facility] ([facility]) Jhz8fdh-%Pred-Pre 102 % [facility] ([facility]) FEFMax-Pred 9.87 L/E/sec [facility] ([facility]) FEFMax-Pre 9.13 L/E/sec [facility] ([facility]) FEFMax-LLN 7.61 L/E/sec [facility] ([facility]) FEFMax-%Pred-Pre 92 L/E/sec [facility] ([facility]) [id number]-Yiai 3.73 L/E/sec [facility] ([facility]) Doy2947-%Pred-Pre 102 L/E/sec [facility] ([facility]) Xha1845-Rmk 3.82 L/E/sec [facility] ([facility]) Rbp0kkc7-Zeez 81 % [facility] ([facility]) ExpTime-Pre 6.08 sec [facility] ([facility]) Rjx1581-EIU 2.17 L/E/sec [facility] ([facility]) Dfh9qlu1-And 81 % [facility] ([facility]) Wmc1gfd8-NRX 72 % [facility] ([facility]) Aqx4ava0-%Pred-Pre 99 % [facility] ([facility]) ID Date Data Source [id number] 06/08/2020 12:00:00 AM EST [facility] Imaging HELEN Hernandez Patient Name: BECKA [id number] Natasha Davis Date of : 1975Joesph [place] [address] Date of Exam: [facility]#: Fax: [phone] EXAM: CT THORAX WITH CONTRASTCLINICAL INFORMATION: Followup lung nodule which by history measured 4 mmin size.The prior examination is in [facility] and no prior images are availablefor comparison.Low dose [address] scanning of the chest was obtained using 3 mmincrements after the administration of intravenous contrast andreconstructed in both coronal and sagittal scan planes. 75 cc of [id number] was administered intravenously.There is a single enlarged [...] Mediastinal adenopathy as described above.Accredited by the [employer] in [place].JUANA Grmies/Salbador you for referring BECKA ADHIKARI to our office. Electronically Signed - INDER LANE DO 06/09/20 15:12 Name Value Range Interpretation Code Description Data Ashanti rce(s) Supporting Document(s) ID Date Data Source [id number] 03/12/2020 11:26:00 AM EDT [facility] ([facility] ) Name Value Range Interpretation Code Description Data Ashanti rce(s) Supporting Document(s) Prothrombin time (PT) 27.4 s 24.2-38.5 [facility] ([facility] ) ID Date Data Source [id number] 03/12/2020 11:26:00 AM EDT [facility] ([facility] ) Name Value Range Interpretation Code Description Data Ashanti rce(s) Supporting Document(s) Prothrombin Time 12.6 s 12.5-14.3 [facility] ([facility]) Inr 0.93 [facility] ([facility] ) THERAPUTIC HUMAN INR VALUES INDICATIONS NORMAL RANGES PROPHYLAXIS/TREATMENT OF: VENOUS THROMBOSIS 2.0-3.0 PULMONARY EMBOLISM 2.0-3.0 PREVENTION OF SYSTEMIC EMBOLISM FROM: TISSUE HEART VALVES 2.0-3.0 ACUTE MYOCARDIAL INFARCTION 2.0-3.0 VALVULAR HEART DISEASE 2.0-3.0 ATRIAL FIBRILLATION 2.0-3.0 MECHANICAL VALVES(HIGH RISK) 2.5-3.5 RECURRENT MYOCARDIAL INFARCTION 2.5-3.5 ID Date Data Source [id number] 03/12/2020 11:26:00 AM EDT [facility] ([facility] ) Name Value Range Interpretation Code Description Data Ashanti rce(s) Supporting Document(s) Platelets [#/volume] in Blood by Automated count 338 10 150-450 [facility] ([facility] ) ID Date Data Source [id number] 03/12/2020 11:26:00 AM EDT [facility] ([facility] ) Name Value Range Interpretation Code Description Data Ashanti rce(s) Supporting Document(s) Collagen Epinephrine 124 s 74-162 [facility] ([facility] ) Results may be affected by platelet coun ts less than 150,000/mL or hematocrits less than 35%. If COL/EPI is NORMAL, COL/ADP is not performed. Result Interpretation: COL/EPI COL/ADP NORMAL NORMAL NORMAL ASA ABNORMAL NORMAL vWD ABNORMAL NORMAL GLANZMANN'S ABNORMAL ABNORMAL THROMBASTHENIA POSSIBLE DRUG ABNORMAL ABNORMAL EFFECT ID Date Data Source [id number] 02/10/2020 02:15:00 PM EDT [facility] ([facility] ) Name Value Range Interpretation Code Description Data Ashanti rce(s) Supporting Document(s) Platelet aggregation collagen induced [Presence] in Platelet rich plasma 100 s 56-103 [facility] ([facility]) Results may be affected by platelet coun ts less than 150,000/mL or hematocrits less than 35%. ID Date Data Source [id number] 02/10/2020 02:15:00 PM EDT [facility] ([facility]) Name Value Range Interpretation Code Description Data Ashanti rce(s) Supporting Document(s) Collagen Epinephrine 210 s 74-162 [facility]) Results may be affected by platelet coun ts less than 150,000/mL or hematocrits less than 35%. If COL/EPI is NORMAL, COL/ADP is not performed. Result Interpretation: COL/EPI COL/ADP NORMAL NORMAL NORMAL ASA ABNORMAL NORMAL vWD ABNORMAL NORMAL GLANZMANN'S ABNORMAL ABNORMAL THROMBASTHENIA POSSIBLE DRUG ABNORMAL ABNORMAL EFFECT ID Date Data Source [id number] 02/10/2020 02:15:00 PM EDT [facility]) Name Value Range Interpretation Code Description Data Ashanti rce(s) Supporting Document(s) Prothrombin time (PT) Laboratory test result [facility] ([facility]) Platelets [#/volume] in Blood by Automated count Laboratory test resu lt [facility] ([facility]) Procedure Social History Code Duration Value Status Description Data Source(s ) 07/15/2020 12:00:00 AM EST Patient is a current smoker, smokes every day completed Patient is a current smoker, smokes every day [facility] ( [facility]) Vital Signs ID Date Data Source UNK Name Value Range Interpretation Code Description Data Source(s) Body surface area Derived from formula 2.19 m2 2.19 m2 [facility] ([facility]) Body weight 104.328 kg 104.328 kg [facility] ([facility]) [place] body weight 160 [lb_av] 160 [lb_av] [facility] Body mass index (BMI) [Ratio] 34.0 kg/m2 34.0 k g/m2 [facility] ([facility]) Body weight 230.00 [lb_av] 230.00 [lb_av] [facility] Body height 69 [in_i] 69 [in_i] [facility] ([facility]) 5'9" Body temperature 96.6 [degF] 96.6 [degF] [facility] ([facility] ) Oxygen saturation in Arterial blood by Pulse oximetry 98 % 98 % [facility] ([facility], ) Heart rate 95 /min 95 /min [facility] ([facility], ) Diastolic blood pressure 76 mm[Hg] 76 mm[Hg] [facility] ([facility]) Systolic blood pressure 132 mm[Hg] 132 mm[Hg] [facility]) Body mass index (BMI) [Ratio] 34.0 kg/m2 34.0 k g/m2 [facility] ([facility] ) Body weight 230.00 [lb_av] 230.00 [lb_av] [facility] ([facility] ) Body height 69 [in_i] 69 [in_i] [facility] ([facility] ) 5'9" Body temperature 97.7 [degF] 97.7 [degF] [facility] ([facility] ) Body mass index (BMI) [Ratio] 33.2 kg/m2 33.2 k g/m2 [facility] ([facility] ) Body weight 225.00 [lb_av] 225.00 [lb_av] [facility] ([facility] ) Body height 69 [in_i] 69 [in_i] [facility] ([facility] ) 5'9" Body temperature 97.6 [degF] 97.6 [degF] [facility] ([facility] ) Body mass index (BMI) [Ratio] 34.0 kg/m2 34.0 k g/m2 [facility] ([facility], ) Body weight 230.00 [lb_av] 230.00 [lb_av] [facility] T ([facility], ) Body height 69 [in_i] 69 [in_i] [facility] ([facility], ) 5'9" Heart rate 72 /min 72 /min [facility] ([facility], ) Diastolic blood pressure 80 mm[Hg] 80 mm[Hg] [facility] ([facility], ) Systolic blood pressure 120 mm[Hg] 120 mm[Hg] [facility] ([facility])
[2020-07-29 23:10] VITALS: BP 137/86
[2020-07-29] MEDS ORDERED: traMADol 50 MG TAB PO PRN (23:40)
--- NOTE | 2020-07-29 23:44 | HPEPDOC ---
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 CT of the chest that revealed ground glass opacities and a 4mm nodule. Repeat CT, which done when he returned to the [place], showed a 1cm speculated left apical nodule, 2 other subcentimeter nodules and enlarge LN, while PET/CT showed some hypermetabolic activity. Yesterday he had transbronchial lung biopsy; thereafter he developed some left sided chest pain which disrupted his sleep. When he woke up this morning he felt short of breath; as the morning went on the dyspnea became progressively worse therefore his called office. A chest xray was ordered which revealed a small apical pneumothorax. Per , recommended 100% O2 via NRB, cough suppressants for his chronic cough, pain meds and repeat xray in the morning. 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 He has been stationed in [place], [place], [place], [place], [place], [place] and more recently [place]. FAMILY HISTORY: His mother had TB, sarcoidosis, COPD and metastatic kidney cancer. His father had skin cancer. ALLERGIES: Please see below. HOME MEDICATIONS: Please see below. PHYSICAL EXAMINATION: Vital Signs Date Time Temp Pulse Resp B/P (MAP) Pulse Ox O2 Delivery O2 Flow Rate FiO2 07/29/20 18:41 97.7 70 18 134/72 (92) 96 Room Air 07/29/20 20:00 100 07/29/20 21:45 15.0 GENERAL APPEARANCE: well nourished & developed /NAD HEENT: mild conjunctival injection / non-rebreather mask in place CARDIOVASCULAR: RRR/NMRG LUNGS: coughing occasionally / breath sounds are CTA on right side, he has slightly prominent bronchovesicular breath sounds on the left / there is no hyper-resonance with percussion ABDOMEN: obese MUSCULOSKELETAL: NCAT / ROMIx 4 INTEGUMENT: no cyanosis NEUROLOGICAL: speech not dysarthric PSYCHIATRIC: A&O x 3 /able to understand and follow all commands LABORATORY DATA: Immature Granulocyte % (Auto) 0.6, Neutrophils (%) (Auto) 65.9, Lymphocytes (%) (Auto) 26.2, Monocytes (%) (Auto) 5.7, Eosinophils (%) (Auto) 1.0, Basophils (%) (Auto) 0.6, Neutrophils # (Auto) 9.2H, Lymphocytes # (Auto) 3.7, Monocytes # (Auto) 0.8, Eosinophils # (Auto) 0.1, Basophils # (Auto) 0.1, Nucleated Red Blood Cells % (auto) 0.0, Anion Gap 4L, Glomerular Filtration Rate > 60.0, Calcium Level 8.4L IMAGING: Chest xray IMPRESSION: Stable left apical pneumothorax. MICROBIOLOGY: Coronavirus (COVID-19)(PCR) NEGATIVE, Influenza Type A (RT-PCR) NEGATIVE, Influenza Type B (RT-PCR) NEGATIVE, Respiratory Syncytial Virus (PCR) NEGATIVE ASSESSMENT: is a 44 yr old smoker w a hx of HTN, JANNY, DLP, pulmonary nodules and obesity who developed progressively worsening dyspnea after lung biopsy; he will be admitted for management of a small pneumothorax. PLAN: 1 Apical pneumothorax Plan: admit to medical floor / 100%O2 via NRB / Robitussin / Tramadol / Incentive spirometer / f/u repeat chest x-ray in the morning / will ask the day time team to touch base with 2 Leukocytosis Likely reactive after biopsy Plan: monitor vitals 3 Essential HTN Losartan & Hydrochlorothiazide 4 DLP Atorvastatin 5 JANNY The day time hospitalist can discuss whether pt should resume nocturnal CPAP with supplemental O2 with Dr. Lincoln in the morning 6 Tobacco Abuse Declined nicotine patch Smoking cessation education 7 Class 1 Obesity Complicates care f/u A1C / the patient can f/u w his or her PCP for a production grader consult, to discuss staring Saxenda, which is indicated in patients with a BMI >27 with co-existing DM, HTN or dyslipidemia to help with weight control as an adjunct to exercise ( recommend cardiovascular exercise for 40 min 4-5 days a week) 8 Lung nodules f/u w Dr Lincoln on an out pt basis on pathology results DVT px w SCDs Dispo: home after at least 2 midnights stay Laboratory Data CBC/BMP Laboratory Tests Home Medications Scheduled Atorvastatin Calcium (Atorvastatin Calcium) 40 Mg Tablet, 40 MG PO DAILY Fluoxetine HCl (Prozac) 20 Mg Capsule, 20 MG PO DAILY Hydrochlorothiazide (Hydrochlorothiazide) 12.5 Mg Tablet, 12.5 MG PO DAILY Losartan Potassium (Losartan Potassium) 50 Mg Tablet, 50 MG PO DAILY Scheduled PRN Lidocaine (Lidocaine) 5% Adh..patch, 1 PATCH TOP DAILY PRN for PAIN APPLIES TO BACK Allergies Coded Allergies: No Known Allergies (Unverified , 07/26/20) A-FIB/CHADSVASC A-FIB History Current/History of A-Fib/PAF?: No Current PO Anticoag Therapy: No ABBI URRUTIA MD Jul 29, 2020 23:44
[2020-07-29] MEDS ORDERED: guaiFENesin SYRUP 200 MG/10 ML UDC PO PRN (23:50)
--- NOTE | 2020-07-30 02:27 | ECGEPIP ---
[facility] - ED Test Date: 2020-07-29 Pat Name: BECKA ADHIKARI Department: Room: - Gender: Male Home Health Physical Therapist: SOFIYA : 1975 Requested By: LOCO Palmer Order Number: [id number] Reading MD: Loco Fowler Measurements Intervals [place] Rate: 65 P: 23 UT: 164 QRS: 57 QRSD: 92 T: 30 QT: 380 QTc: 395 Interpretive Statements Normal sinus rhythm Electronically Signed on 07-30-2020 2:26:48 EST by Loco Fowler
[2020-07-30 06:00] VITALS: BP 131/73
[2020-07-30] MEDS: traMADol 50 MG TAB PO PRN ×3 (06:27→22:07)
[2020-07-30 06:29] LABS: HEMATOCRIT 41.5 % (42.0-52.0); HEMOGLOBIN 14.1 g/dl (13.5-17.5); MEAN CORPUSCULAR HEMOGLOBIN 30.5 pg (27.0-33.0); MEAN CORPUSCULAR VOLUME 89.6 fl (80.0-96.0); PLATELET COUNT, AUTOMATED 285 10^3/uL (150-450); RED BLOOD COUNT 4.63 10^6/uL (4.30-6.10); WHITE BLOOD COUNT 12.1 10^3/uL (4.0-10.0)
[2020-07-30 06:59] LABS: BLOOD UREA NITROGEN 10 MG/DL (7-18); CALCIUM LEVEL 8.6 MG/DL (8.5-10.1); CARBON DIOXIDE LEVEL 26 MEQ/L (21-32); CHLORIDE LEVEL 110 MEQ/L (98-107); CREATININE FOR GFR 0.91 MG/DL (0.70-1.30); GLOMERULAR FILTRATION RATE > 60.0 (>60); GLUCOSE, FASTING 92 MG/DL (70-100); POTASSIUM SERUM 4.2 MEQ/L (3.5-5.1); SODIUM LEVEL 139 MEQ/L (136-145)
[2020-07-30 09:07] LABS: HEMOGLOBIN A1c 5.4 %
[2020-07-30] MEDS: hydroCHLOROthiazide 12.5 MG CAPSULE PO SCH (09:57)
[2020-07-30] MEDS: ATORVASTATIN 20 MG TAB PO SCH (09:57)
[2020-07-30] MEDS: FLUoxetine 20 MG CAP PO SCH (09:57)
[2020-07-30] MEDS: LOSARTAN 50MG TABLET PO SCH (09:59)
--- NOTE | 2020-07-30 11:26 | IPNPDOC ---
Subjective Date Seen The patient was seen on 07/30/20. Subjective Chief Complaint/HPI Reports still a little chest discomfort but is much better. No SOB or cough . No nausea or abdominal pain. Objective Physical Examination General Exam: Positive: Alert, Cooperative, No Acute Distress Eye Exam: Positive: PERRLA, Conjunctiva & lids normal, EOMI; Negative: Sclera icteric ENT Exam: Positive: Atraumatic, Mucous membr. moist/pink, Pharynx Normal Neck Exam: Positive: Supple; Negative: JVD, thyromegaly Chest Exam: Positive: Clear to auscultation, Normal air movement Heart Exam: Positive: Rate Normal, Regular Rhythm, Normal S1, Normal S2; Negative: Murmurs, Rubs Abdomen Exam: Positive: Normal bowel sounds, Soft; Negative: Tenderness, Hepatospenomegaly Extremity Exam: Positive: Normal pulses; Negative: Clubbing, Cyanosis, Edema Skin Exam: Positive: Nl turgor and temperature; Negative: Rash, Breakdown Assessment /Plan Assessment This is 44 yr old smoker with a hx of HTN, JANNY, DLP, pulmonary nodules and obesity who developed progressively worsening dyspnea after lung biopsy. He was found to have post procedure small pneumothorax. Apical pneumothorax 100%O2 via NRB / Robitussin / Tramadol / Incentive spirometer CXR. Leukocytosis Likely reactive after biopsy Essential HTN Losartan & Hydrochlorothiazide DLP Atorvastatin JANNY Hold nocturnal CPAP till pneumo has resolved. Tobacco Abuse Declined nicotine patch Smoking cessation education Class 1 Obesity Complicates care f/u A1C / the patient can f/u w his or her PCP for a soil engineer consult, to discuss staring Saxenda, which is indicated in patients with a BMI >27 with co- existing DM, HTN or dyslipidemia to help with weight control as an adjunct to exercise ( recommend cardiovascular exercise for 40 min 4-5 days a week) Lung nodules f/u w Dr Lincoln on an out pt basis on pathology results DVT px w SCDs Plan/VTE VTE Prophylaxis Ordered?: Yes VS, I&O, 24H, Fishbone Vital Signs/I&O Vital Signs Date Time Temp Pulse Resp B/P (MAP) Pulse Ox O2 Delivery O2 Flow Rate FiO2 07/30/20 09:59 141/93 07/30/20 06:57 16 07/30/20 06:27 Room Air 07/30/20 06:00 97.5 68 100 07/29/20 21:45 15.0 07/29/20 20:00 100 I&O- Last 24 Hours up to 6 AM 07/30/20 06:00 Output Total 750 ml Balance -750 ml Laboratory Data 24H LABS Laboratory Tests 2 07/29/20 20:01: Immature Granulocyte % (Auto) 0.6, Neutrophils (%) (Auto) 65.9, Lymphocytes (%) (Auto) 26.2, Monocytes (%) (Auto) 5.7, Eosinophils (%) (Auto) 1.0, Basophils (%) (Auto) 0.6, Neutrophils # (Auto) 9.2H, Lymphocytes # (Auto) 3.7, Monocytes # (Auto) 0.8, Eosinophils # (Auto) 0.1, Basophils # (Auto) 0.1, Nucleated Red Blood Cells % (auto) 0.0, Anion Gap 4L, Glomerular Filtration Rate > 60.0, Calcium Level 8.4L, Coronavirus (COVID-19)(PCR) NEGATIVE, Influenza Type A (RT- PCR) NEGATIVE, Influenza Type B (RT-PCR) NEGATIVE, Respiratory Syncytial Virus (PCR) NEGATIVE 07/30/20 06:14: Nucleated Red Blood Cells % (auto) 0.0, Anion Gap 3L, Glomerular Filtration Rate > 60.0, Calcium Level 8.6, Estimated Mean Plasma Glucose 108, Hemoglobin A1c 5.4 CBC/BMP Laboratory Tests 07/29/20 20:01 07/30/20 06:14 OKSANA GO MD Jul 30, 2020 11:26
--- NOTE | 2020-07-30 14:19 | REP ---
INDICATION: f/u on pneumothorax. COMPARISON: Comparison chest x-ray July 29, 2020. TECHNIQUE: Two views.. FINDINGS: The lungs are symmetrically aerated. There is slight blunting of the left lateral pleural angle and the left posterior pleural angle indicating a small amount of left pleural fluid. Right pleural angles are sharp. Heart is not felt to be enlarged. A small left apical pneumothorax is again seen. This is slightly smaller than on the original radiograph of July 29, 2020, 5:06 p.m. film. IMPRESSION: Small left apical pneumothorax, slightly decreased in size from yesterday's radiograph. Slight blunting of the left pleural angles.. <Electronically signed by Sal Mcmillan > 07/30/20 [id number]
[2020-07-30] MEDS: **NOTE PATIENT COMMENT** MISC XX SCH (21:00)
[2020-07-30 22:00] VITALS: BP 108/68
[2020-07-31 06:00] VITALS: BP 129/79
[2020-07-31] MEDS: traMADol 50 MG TAB PO PRN (06:21)
[2020-07-31] MEDS: hydroCHLOROthiazide 12.5 MG CAPSULE PO SCH (09:09)
[2020-07-31] MEDS: FLUoxetine 20 MG CAP PO SCH (09:09)
[2020-07-31] MEDS: ATORVASTATIN 20 MG TAB PO SCH (09:09)
[2020-07-31 09:10] VITALS: BP 131/76
[2020-07-31] MEDS: LOSARTAN 50MG TABLET PO SCH (09:10)
--- NOTE | 2020-07-31 09:48 | REP ---
INDICATION: follow up on pneumothorax COMPARISON: 07/30/2020. TECHNIQUE: PA/Lateral FINDINGS: The tiny left apical pneumothorax continues to decrease in size. Minimal parenchymal opacity laterally at the left base has improved. No new parenchymal opacities have developed bilaterally. The heart mediastinum are unchanged. IMPRESSION: Tiny left apical pneumothorax has decreased in size. Improved left basilar parenchymal opacity. <Electronically signed by Mane Terrazas > 07/31/20 [id number]
--- NOTE | 2020-07-31 16:11 | DS.PDOC ---
Discharge Summary General Date of Admission Jul 29, 2020 at 22:19 Date of Discharge 07/31/20 Discharge Summary PROCEDURES PERFORMED DURING STAY: [None]. DISCHARGE DIAGNOSIS: Left apical Pneumothorax s/p bronchoscopic lung nodule biopsy. SECONDARY DIAGNOSIS: HTN, JANNY, DLP, pulmonary nodules, Obesity, smoker COMPLICATIONS/CHIEF COMPLAINT: Pneumothorax. HOSPITAL COURSE: This is 44 yr old smoker with a hx of HTN, JANNY, DLP, obesity Had bronchoscopic biopsy of left upper lobe lung nodule and subcarinal lymph node biopsy on 07/28/20 then developed progressively worsening dyspnea after lung biopsy. He was found to have post procedure small pneumothorax on 07/29/20. Apical pneumothorax serial CXRs showing it is getting smaller . Not yet fully resolved No CPAP till seen by Dr Lincoln and cleared for use No PT or lifting greater than 10 lbs till cleared by Pulmonary. Essential HTN Losartan & Hydrochlorothiazide DLP Atorvastatin JANNY Hold nocturnal CPAP till cleared by Dr lincoln. Tobacco Abuse Declined nicotine patch Smoking cessation education Class 1 Obesity follow up PMD Lung nodules f/u w Dr Lincoln on an out pt basis on pathology results DISCHARGE MEDICATIONS: Please see below. ALLERGIES: Please see below. PHYSICAL EXAMINATION ON DISCHARGE: VITAL SIGNS: Please see below. General Exam: Positive: Alert, Cooperative, No Acute Distress Eye Exam: Positive: PERRLA, Conjunctiva & lids normal, EOMI; Negative: Sclera icteric ENT Exam: Positive: Atraumatic, Mucous membr. moist/pink, Pharynx Normal Neck Exam: Positive: Supple; Negative: JVD, thyromegaly Chest Exam: Positive: Clear to auscultation, Normal air movement Heart Exam: Positive: Rate Normal, Regular Rhythm, Normal S1, Normal S2; Negative: Murmurs, Rubs Abdomen Exam: Positive: Normal bowel sounds, Soft; Negative: Tenderness, Hepatosplenomegaly Extremity Exam: Positive: Normal pulses; Negative: Clubbing, Cyanosis, Edema Skin Exam: Positive: Nl turgor and temperature; Negative: Rash, Breakdown LABORATORY DATA: Please see below. ACTIVITY: [As tolerated]. DIET: As tolerated DISCHARGE PLAN: Home DISCHARGE INSTRUCTIONS: Dr Lincoln in 1 week Do Not Use CPAP ITEMS TO FOLLOWUP ON ON OUTPATIENT: Lung biopsy results DISCHARGE CONDITION: [Stable]. TIME SPENT ON DISCHARGE: 35 minutes. Vital Signs/I&Os Vital Signs Date Time Temp Pulse Resp B/P (MAP) Pulse Ox O2 Delivery O2 Flow Rate FiO2 07/31/20 09:10 131/76 07/31/20 07:00 18 07/31/20 06:21 Room Air 07/31/20 06:00 99.0 72 98 07/30/20 22:00 15.0 07/29/20 20:00 100 I&O- Last 24 Hours up to 6 AM 07/31/20 06:00 Intake Total 1565 ml Output Total 2600 ml Balance -1035 ml Discharge Medications Scheduled Atorvastatin Calcium (Atorvastatin Calcium) 40 Mg Tablet, 40 MG PO DAILY, (Reported) Fluoxetine HCl (Prozac) 20 Mg Capsule, 20 MG PO DAILY, (Reported) Hydrochlorothiazide (Hydrochlorothiazide) 12.5 Mg Tablet, 12.5 MG PO DAILY, (Reported) Losartan Potassium (Losartan Potassium) 50 Mg Tablet, 50 MG PO DAILY, (Reported) Scheduled PRN Lidocaine (Lidocaine) 5% Adh..patch, 1 PATCH TOP DAILY PRN for PAIN, (Reported) APPLIES TO BACK Allergies Coded Allergies: No Known Allergies (Unverified , 07/26/20) OKSANA GO MD Jul 31, 2020 16:11
== END 2020-07-31 15:00 | disposition home or self-care (01) | DRG 201 ==
LOC: M ED 18:40 → M ED INP 22:19 → M MSPAV 23:10
PROVIDERS: ADMIT Internal Medicine; ATTEND Internal Medicine Nephrology
DX: J95.811 Postprocedural pneumothorax (principal); I10 Essential (primary) hypertension; D72.829 Elevated white blood cell count, unspecified; E78.5 Hyperlipidemia, unspecified; G47.33 Obstructive sleep apnea (adult) (pediatric); E66.9 Obesity, unspecified; R91.8 Other nonspecific abnormal finding of lung field; F17.200 Nicotine dependence, unspecified, uncomplicated; Z20.822 Contact with and (suspected) exposure to COVID-19; Z91.82 Personal history of military deployment; Z79.899 Other long term (current) drug therapy; Z68.34 Body mass index [BMI] 34.0-34.9, adult; Y83.8 Other surgical procedures as the cause of abnormal reaction of the patient, or of later complication, without mention of misadventure at the time of the procedure

== ENCOUNTER → 2020-07-29 | Outpatient (CLI) | payer OTHER ==
[~2020-07-29] MED LIST changes: -ALBUTEROL SULFATE 2.5 MG/0.5 ML INH NEB SOLN INH ONE; +ATOR40TA75 PO; -LIDOCAINE 1% MDV 20ML VIAL SQ PRN; -LIDOCAINE 4% INJ 5ML AMP INH ONE; -LR 1,000 ML IV ONE
--- NOTE | 2020-07-29 17:38 | REP ---
INDICATION: OTHER NONSPECIFIC ABNORMAL FINDING OF LUNG FIELD. COMPARISON: Comparison is made with 2 portable chest x-rays from July 28, 2020. TECHNIQUE: Two views.. FINDINGS: There is a small left apical pneumothorax visible on today's PA chest radiograph.a this is new radiographic finding. There is pleural angles are sharp. Lung mancera are free of infiltrate. Cardiomediastinal silhouette is unremarkable and unchanged. IMPRESSION: Small left apical pneumothorax. Incidental Findings: Small left apical pneumothorax The critical information above was relayed directly by me by telephone to ISAAC FRENCH on 07/29/2020 at 5:34 pm with readback verification. <Electronically signed by Sal Mcmillan > 07/29/20 [id number]
== END ==
LOC: M RAD 16:50
PROVIDERS: ATTEND Internal Medicine Pulmonary Disease
DX: J93.9 Pneumothorax, unspecified (principal)

== ENCOUNTER → 2020-09-09 | Outpatient (CLI) | payer OTHER ==
[~2020-09-09] MED LIST changes: +ATOR40TA75 PO
== END ==
LOC: M LAB 10:29
PROVIDERS: ATTEND Internal Medicine Pulmonary Disease
DX: R91.1 Solitary pulmonary nodule (principal)

== ENCOUNTER → 2020-11-29 | Outpatient (CLI) | payer OTHER ==
--- NOTE | 2020-11-29 14:58 | REP ---
INDICATION: DIAGNOSING SOLITARY PULMONARY NODULE. COMPARISON: Comparison PET-CT study [address] study of the chest is from July 22, 2020.. TECHNIQUE: Forty-five minutes following the intravenous injection of a 11.07 mCi dose of F-18 FDG, three-dimensional PET scintigraphy is acquired from the skull base to the proximal thighs. Triplanar noncontrast CT scanning is acquired through the same anatomic range for attenuation correction, and image registration with scan parameters optimized to minimize radiation exposure to the patient. PET scintigraphy and CT datasets were fused and displayed on a workstation with multiplanar and projection display capability. FINDINGS: Head and neck soft tissues remain unremarkable. There is no abnormal hypermetabolic uptake within the abdomen or pelvis. The small part solid nodule previously identified in the left lung apex is again seen essentially unchanged morphologically from July 22, 2020. Previously maximum SUV value in this nodule was 2.51. On today's PET scintigraphy study, maximum SUV value here is 1.62. There is mildly hypermetabolic mediastinal adenopathy again noted although SUV values are improved. The right paratracheal lymph node previously showed SUV value 2.28, today's maximum SUV value is 2.54. The AP window region lymph node previously was maximum SUV value 8.98. Today this lymph node which is unchanged morphologically shows maximum SUV value of 3.40. Subcarinal and periesophageal lymph nodes show maximum SUV value of 4.0 and 3.63 respectively, previously the subcarinal node measured SUV 9.28. These nodes appear decreased in size. No new pulmonary parenchymal or other intrathoracic IMPRESSION: Interval improvement in the relative avidity and size of mediastinal lymphadenopathy and the left upper lobe nodule in the interval since the June 22, 2020 study. <Electronically signed by Sal Mcmillan > 11/29/20 [id number]
== END ==
LOC: M PLARAD 07:29
PROVIDERS: ATTEND Internal Medicine Pulmonary Disease
DX: R91.1 Solitary pulmonary nodule (principal); R59.0 Localized enlarged lymph nodes
CPT/HCPCS: 78815; A9552

== ENCOUNTER → 2021-11-02 | Outpatient (CLI) | payer OTHER ==
[~2021-11-02] MED LIST changes: +LOSA50TA28 PO; -LOSA50TA88 PO
[2021-11-02 12:49] LABS: BLOOD UREA NITROGEN 12 MG/DL (7-18); CALCIUM LEVEL 9.9 MG/DL (8.5-10.1); CARBON DIOXIDE LEVEL 29 MEQ/L (21-32); CHLORIDE LEVEL 109 MEQ/L (98-107); CREATININE FOR GFR 1.04 MG/DL (0.70-1.30); GLOMERULAR FILTRATION RATE > 60.0 (>60); GLUCOSE, FASTING 104 MG/DL (70-100); POTASSIUM SERUM 4.3 MEQ/L (3.5-5.1); SODIUM LEVEL 143 MEQ/L (136-145)
== END ==
LOC: M LAB 11:54
PROVIDERS: ATTEND Internal Medicine Pulmonary Disease
DX: R91.8 Other nonspecific abnormal finding of lung field (principal)

== ENCOUNTER → 2021-11-04 | Outpatient (CLI) | payer OTHER ==
[~2021-11-04] MED LIST changes: +ISOVUE-370 76% 100ML VIAL As Ordered ONE
== END ==
LOC: M RAD 15:06
PROVIDERS: ATTEND Internal Medicine Pulmonary Disease
DX: R59.0 Localized enlarged lymph nodes (principal); R91.8 Other nonspecific abnormal finding of lung field
CPT/HCPCS: 71260; Q9967

== ENCOUNTER 2021-12-12 13:33 | Emergency (ER) | payer OTHER ==
[~2021-12-12] VITALS: Ht 177.8 cm; Wt 117.8 kg
[~2021-12-12 13:33] MED LIST changes: -ISOVUE-370 76% 100ML VIAL As Ordered ONE
[2021-12-12] MEDS ORDERED: TRAZ-252 (14:31)
[2021-12-12] MEDS ORDERED: IBUP1TAB7 (14:31)
[2021-12-12] MEDS ORDERED: METH-1164 (14:31)
[2021-12-12] MEDS ORDERED: BUSP10TA (14:31)
[2021-12-12] MEDS ORDERED: WELLTAB40 (14:31)
[2021-12-12] MEDS ORDERED: KETOROLAC 30 MG/ML 1ML VIAL IM ONE (18:55)
[2021-12-12] MEDS ORDERED: HYDR-3713 PO (19:33)
[2021-12-12 19:39] VITALS: BP 148/98
[2021-12-12] MEDS ORDERED: NORCO, ANEXSIA 5/325MG TABLET (HYDROcodone/ACETAMINOPHEN) PO ONE (19:40)
== END 2021-12-12 19:47 | disposition home or self-care (01) ==
LOC: M ED 13:33
DX: S46.001A Unspecified injury of muscle(s) and tendon(s) of the rotator cuff of right shoulder, initial encounter (principal); W01.0XXA Fall on same level from slipping, tripping and stumbling without subsequent striking against object, initial encounter; Y92.099 Unspecified place in other non-institutional residence as the place of occurrence of the external cause; I10 Essential (primary) hypertension; G47.33 Obstructive sleep apnea (adult) (pediatric); F17.200 Nicotine dependence, unspecified, uncomplicated; Z79.899 Other long term (current) drug therapy
CPT/HCPCS: 73030; 96372; 99283; J1885

== ENCOUNTER 2022-03-11 11:25 | Emergency (ER) | payer OTHER ==
[~2022-03-11] VITALS: Ht 175.3 cm; Wt 117.3 kg
[~2022-03-11 11:25] MED LIST changes: +BUSP10TA; +HYDR-3713 PO; +IBUP1TAB7; +METH-1164; +TRAZ-252; +WELLTAB40
[2022-03-11] MEDS ORDERED: GABA-1171 PO (11:37)
[2022-03-11] MEDS ORDERED: LIDOCAINE 4% CREAM 5GM (LMX4) TOP ONE (13:15)
[2022-03-11] MEDS ORDERED: KETOROLAC 60MG 2ML VIAL IM ONE (13:15)
[2022-03-11] MEDS ORDERED: LIDO1CRE2 TOP (14:35)
[2022-03-11] MEDS ORDERED: NAPR-837 PO (14:35)
[2022-03-11 14:47] VITALS: BP 142/91
== END 2022-03-11 14:49 | disposition home or self-care (01) ==
LOC: M ED 11:25
DX: R22.42 Localized swelling, mass and lump, left lower limb (principal); M79.672 Pain in left foot; I10 Essential (primary) hypertension; E78.5 Hyperlipidemia, unspecified; Z98.890 Other specified postprocedural states; Z79.899 Other long term (current) drug therapy
CPT/HCPCS: 73600; 73630; 93971; 96372; 99283; J1885

== ENCOUNTER 2022-05-18 15:14 | Emergency (ER) | payer OTHER ==
[~2022-05-18] VITALS: Ht 177.8 cm; Wt 118.0 kg
[~2022-05-18 15:14] MED LIST changes: +GABA-1171 PO; +LIDO1CRE2 TOP; +NAPR-837 PO
[2022-05-18 15:17] VITALS: BP 150/85
[2022-05-18] MEDS ORDERED: LIDOCAINE 1% MDV 20ML VIAL SC ONE (17:25)
[2022-05-18] MEDS ORDERED: BOOSTRIX/ADACEL VACCINE (DIPHTH/PERTUSS/ACELL/TETANUS) 0.5ML SYR IM ONE (17:25)
[2022-05-18] MEDS ORDERED: NEOSPORIN OINT 0.9 GM PKT TOP ONE (17:25)
== END 2022-05-18 17:58 | disposition home or self-care (01) ==
LOC: M ED 15:14
DX: S61.012A Laceration without foreign body of left thumb without damage to nail, initial encounter (principal); W26.8XXA Contact with other sharp object(s), not elsewhere classified, initial encounter; Y92.099 Unspecified place in other non-institutional residence as the place of occurrence of the external cause; Y93.89 Activity, other specified; I10 Essential (primary) hypertension; E78.5 Hyperlipidemia, unspecified; G47.33 Obstructive sleep apnea (adult) (pediatric); F43.10 Post-traumatic stress disorder, unspecified; Z79.899 Other long term (current) drug therapy

== ENCOUNTER → 2022-06-09 | Outpatient (CLI) | payer OTHER | LOC: M SLEEP 20:00 | PROVIDERS: ATTEND Physician Assistant Medical | DX: G47.33 Obstructive sleep apnea (adult) (pediatric) (principal) ==

== ENCOUNTER → 2022-11-21 | Outpatient (CLI) | payer OTHER | LOC: M PLAIMG 14:42 | PROVIDERS: ATTEND Physician Assistant Medical | DX: G43.909 Migraine, unspecified, not intractable, without status migrainosus (principal) ==

== ENCOUNTER 2023-09-28 03:58 | Emergency (ER) | payer OTHER ==
[~2023-09-28] VITALS: Ht 175.3 cm; Wt 114.2 kg
[~2023-09-28 03:58] MED LIST changes: -BUSP10TA; +BUSP10TA PO; -TRAZ-252; +TRAZ-252 PO; -WELLTAB40; +WELLTAB40 PO
[2023-09-28] MEDS: KETOROLAC 30 MG/ML 1ML VIAL IV ONE (06:36)
[2023-09-28 06:50] LABS: BASO # 0.1 10^3/uL (0.0-0.2); BASO % 0.6 % (0.0-1.0); EOS # 0.2 10^3/uL (0.0-0.5); EOS % 1.4 % (0.0-3.0); HEMATOCRIT 43.4 % (42.0-52.0); HEMOGLOBIN 15.7 g/dl (13.5-17.5); LYMPH # 2.2 10^3/uL (1.5-5.0); LYMPH % 13.9 % (24.0-44.0); MEAN CORPUSCULAR HEMOGLOBIN 32.4 pg (27.0-33.0); MEAN CORPUSCULAR HGB CONC 36.2 g/dl (32.0-36.5); MEAN CORPUSCULAR VOLUME 89.7 fl (80.0-96.0); MONO # 1.1 10^3/uL (0.0-0.8); MONO % 6.7 % (2.0-8.0); NEUTROPHILS # 12.2 10^3/uL (1.5-8.5); NEUTROPHILS % 76.8 % (36.0-66.0); PLATELET COUNT, AUTOMATED 254 10^3/uL (150-450); RED BLOOD COUNT 4.84 10^6/uL (4.30-6.10); WHITE BLOOD COUNT 15.9 10^3/uL (4.0-10.0)
[2023-09-28 07:27] LABS: RSV AMPLIFICATION NEGATIVE (NEGATIVE)
[2023-09-28] MEDS ORDERED: ISOVUE-370 76% 100ML VIAL As Ordered ONE (08:04)
[2023-09-28] MEDS: cefTRIAXone SOD 1 GM in D5W MINI-BAG PLUS 50 ML IV ONE (08:50)
[2023-09-28 08:54] LABS: ERYTHROCYTE SEDIMENTATION RATE 11 mm/hr (0-15)
[2023-09-28] MEDS ORDERED: AMOX875T2 PO (09:50)
[2023-09-28 10:14] VITALS: BP 119/56; TEMP 98.8; O2SAT 97
== END 2023-09-28 10:16 | disposition home or self-care (01) ==
LOC: M ED 03:58
DX: J02.9 Acute pharyngitis, unspecified (principal); I10 Essential (primary) hypertension; F41.9 Anxiety disorder, unspecified; F32.A Depression, unspecified; F43.10 Post-traumatic stress disorder, unspecified; F17.200 Nicotine dependence, unspecified, uncomplicated; Z79.899 Other long term (current) drug therapy
CPT/HCPCS: 70491; 80047; 85025; 85652; 86140; 87631; 87880; 96365; 96375; 99284; J0696; J1885; Q9967

== ENCOUNTER 2024-12-31 13:18 | Emergency (ER) | payer OTHER ==
[~2024-12-31] VITALS: Ht 175.3 cm; Wt 117.8 kg
[~2024-12-31 13:18] MED LIST changes: +AMOX875T2 PO; -LIDO1CRE2 TOP; +LIDO4CRE12 TOP; -PROZ20CA11 PO; +PROZ20CA12 PO
[2024-12-31 15:29] VITALS: BP 116/67; TEMP 97.3; O2SAT 100
[2024-12-31] MEDS: KETOROLAC 60 MG/2 ML VIAL IM ONE (15:47)
[2024-12-31] MEDS ORDERED: KETO-204 PO (16:21)
== END 2024-12-31 16:27 | disposition home or self-care (01) ==
LOC: M ED 13:18
DX: M25.512 Pain in left shoulder (principal); I10 Essential (primary) hypertension; E78.5 Hyperlipidemia, unspecified; F43.10 Post-traumatic stress disorder, unspecified; F41.9 Anxiety disorder, unspecified; F32.A Depression, unspecified; F17.200 Nicotine dependence, unspecified, uncomplicated; F12.10 Cannabis abuse, uncomplicated; Z79.899 Other long term (current) drug therapy
CPT/HCPCS: 96372; 99283; J1885